=== PATIENT | female | born 1995 | race Caucasian/White ===

== ENCOUNTER → 2022-11-27 12:17 | Outpatient (CLI) | payer OTHER, MEDICAID, SELFPAY ==
[2022-11-27 14:24] LABS: Add Manual Diff / Slide Review NO; Basophils Absolute Auto 0 /uL (0-100); Basophils Percent Auto 0.3 % (0-2); Eosinophils Absolute Auto 100 /uL (0-450); Eosinophils Percent Auto 1.1 % (2-4); Hematocrit 37.9 % (36-46); Hemoglobin 12.9 g/dL (12.0-16.0); Lymphocytes Absolute Auto 1300 /uL (1100-4500); Lymphocytes Percent Auto 18.7 % (25-40); Mean Corpuscular HGB Conc 34.1 % (30-36); Mean Corpuscular Hemoglobin 31.2 PG (26-34); Mean Corpuscular Volume 91.5 fL (80-100); Monocytes Absolute Auto 300 /uL (0-900); Monocytes Percent Auto 4.9 % (3-14); Neutrophils Absolute Auto 5200 /uL (1500-7000); Platelet Count 249 X10^3/uL (150-400); Red Blood Cell Count 4.14 X10^6/uL (4.0-5.2)
[2022-11-27 15:35] LABS: HIV 1 & 2 Ab/Ag 4th Gen Combo NEGATIVE (NEGATIVE); Hepatitis B Surface Antigen NEGATIVE s/c (NEGATIVE); Rubella Antibody IgG 12.8 IU/mL (>15)
[2022-11-27 15:59] LABS: Hep C Virus Ab w/Reflex Quant NEGATIVE s/c (NEGATIVE)
[2022-11-27 17:17] LABS: Appearance Urine UA CLEAR; Bilirubin Urine UA NEGATIVE (NEGATIVE); Color Urine UA YELLOW; Glucose Urine UA NEGATIVE (Negative); Ketones Urine UA NEGATIVE (NEGATIVE); Leukocyte Esterase Urine UA NEGATIVE (NEGATIVE); Nitrite Urine UA NEGATIVE (Negative); Occult Blood Urine UA NEGATIVE (Negative); Protein Urine UA NEGATIVE (Negative); Specific Gravity Urine UA 1.015 (1.000-1.035); Urobilinogen Urine UA 0.2 E.U./dL (0.2)
[2022-11-27 17:19] LABS: pH Urine UA 5.5 (4.5-8.0)
[2022-11-27 18:41] LABS: Urine N gonorrhoeae NOT DETECTED
[2022-11-27 18:42] LABS: Urine Chlamydia NOT DETECTED
[2022-11-28 07:59] LABS: RPR Screen Non Reactive (Non Reactive)
[2022-11-28 09:10] LABS: Varicella IgG Antibody 2155 index (Immune >165)
== END ==
PROVIDERS: Visit Provider Student in an Organized Health Care Education/Training Program
DX: Z34.01 Encounter for supervision of normal first pregnancy, first trimester (principal); Z34.81 Encounter for supervision of other normal pregnancy, first trimester
CPT/HCPCS: 36415; 80055; 81003; 86787; 86803; 86850; 86900; 86901; 87086; 87389; 87491; 87591

== ENCOUNTER → 2023-01-28 11:01 | Outpatient (CLI) | payer OTHER, MEDICAID, SELFPAY ==
[2023-01-28 12:21] LABS: Appearance Urine UA CLEAR; Bilirubin Urine UA NEGATIVE (NEGATIVE); Color Urine UA YELLOW; Glucose Urine UA NEGATIVE (Negative); Ketones Urine UA NEGATIVE (NEGATIVE); Leukocyte Esterase Urine UA 1+ (NEGATIVE); Nitrite Urine UA NEGATIVE (Negative); Occult Blood Urine UA NEGATIVE (Negative); Protein Urine UA NEGATIVE (Negative); Specific Gravity Urine UA <=1.005 (1.000-1.035); Urobilinogen Urine UA 0.2 E.U./dL (0.2)
[2023-01-28 12:22] LABS: pH Urine UA 5.5 (4.5-8.0)
[2023-01-28 13:33] LABS: Bacteria Urine Few (2-10); RBC Urine 1-5/HPF (0-5/HPF); Squamous Epithelial Cell Urine 1-5 /HPF (0-5/HPF); WBC Urine 1-5/HPF (0-5/HPF)
[2023-01-28 13:34] LABS: Culture Indicated Urine Specimen Cultured
== END ==
PROVIDERS: PCP Registered Nurse; Referring Provider Family Medicine; Visit Provider Family Medicine
DX: R36.9 Urethral discharge, unspecified (principal)
CPT/HCPCS: 81001; 87086

== ENCOUNTER → 2023-02-11 12:29 | Outpatient (CLI) | payer OTHER, MEDICAID, SELFPAY ==
--- NOTE | 2023-02-11 12:30 | DI.US.S_ITS ---
PROCEDURE: US OB >= 14 WEEKS FETUS INDICATIONS: anatomy scan OUTSIDE/PRIOR DATING DATA: Last menstrual period (LMP): September 17, 2022. LMP-based estimated date of delivery (MARGO): June 24, 2023. First dating scan (date and location): November 27, 2022. Estimated date of delivery (MARGO) from first dating scan: June 20, 2023 TECHNIQUE: Real-time scanning was performed of the fetus, with image documentation and biometric measurements. Endovaginal scanning: Not performed COMPARISON: None. FINDINGS: General: A single living intrauterine gestation is present. Presentation: Vertex. Placenta: Placental position is fundal , without previa. Amniotic fluid index: 12.8 cm, normal range is 5-24 cm. Single deepest vertical pocket is 4.7 cm. heart rate: 130 beats per minute. Maternal cervical canal: 3.6 cm long. Normal lower limit is 2.5 cm. biometrics: Biparietal diameter: 5.3 cm, 22 weeks, 0 days Head circumference: 19.5 cm, 21 weeks, 5 days Abdominal circumference: 16.7 cm, 21 weeks, 5 days Femur length: 3.5 cm, 21 weeks, 1 day Clinically estimated gestational age: 21 weeks, 0 days Composite gestational age from present scan: 21 weeks, 5 days Estimated weight and percentile: 426 g, 70% Anatomic survey: Neuro: Ventricles are non-dilated at less than 10 mm. Cisterna magna is normal at 3-11 mm. Cerebellum is normal in size and morphology. Nuchal skin fold: Normal at less than 6 mm between 14-21 weeks gestational age. Face: Nose and lips, facial profile are normal. Spine: No evidence for spina bifida. Heart: 4-chambered heart is present, with normal ventricular outflow tracts. Diaphragm: Diaphragm is intact. Stomach: Left-sided stomach is present. Kidneys: No hydronephrosis. Normal is less than 5 mm in 2nd trimester, less than 7 mm in 3rd trimester. Cord: 3-vessel cord has orthotopic insertion. Bladder: Normal in size. Extremities: All 4 extremities identified. IMPRESSION: 1. Single live intrauterine gestation with a composite gestational age of 21 weeks, 5 days which is concordant with dates by initial scan. 2. No sonographic anatomic abnormalities. We strive to produce accurate, complete, and clear reports of imaging services. To assist us in improving patient care, this report was composed using standard report templates and voice recognition software. Therefore, it may contain abnormal punctuation, insertions and/or omissions. Occasional wrong-word or sound-alike substitutions may occur. Though we review the report and make efforts to correct it, we do recommend that the report be read carefully in proper context to recognize any text inaccuracies. Dictated by: Janneth Roche M.D. on 02/11/2023 at 16:51 Approved by: Janneth Roche M.D. on 02/11/2023 at 16:54
== END ==
PROVIDERS: PCP Registered Nurse; Referring Provider Family Medicine; Visit Provider Family Medicine
DX: Z3A.21 21 weeks gestation of pregnancy; Z34.02 Encounter for supervision of normal first pregnancy, second trimester
CPT/HCPCS: 76811

== ENCOUNTER → 2023-02-25 15:16 | Outpatient (CLI) | payer OTHER, MEDICAID, SELFPAY ==
[2023-02-27 16:08] LABS: Candida species Negative (Negative); Gardnerella vaginalis Negative (Negative); Trichomoas vaginalis Negative (Negative)
== END ==
PROVIDERS: Family Provider Registered Nurse; PCP Registered Nurse; Visit Provider Student in an Organized Health Care Education/Training Program
DX: N89.8 Other specified noninflammatory disorders of vagina (principal)
CPT/HCPCS: 87480; 87510; 87660

== ENCOUNTER → 2023-03-09 14:19 | Outpatient (CLI) | payer OTHER, MEDICAID, SELFPAY ==
[2023-03-09 15:43] LABS: Hematocrit 35.1 % (36-46); Hemoglobin 11.9 g/dL (12.0-16.0)
[2023-03-09 16:25] LABS: GTT (PREG) 1 Hour PP 50gm Dose 114 mg/dL (76-139)
== END ==
PROVIDERS: Family Provider Registered Nurse; PCP Registered Nurse; Referring Provider Student in an Organized Health Care Education/Training Program; Visit Provider Student in an Organized Health Care Education/Training Program
DX: Z34.01 Encounter for supervision of normal first pregnancy, first trimester (principal); Z3A.26 26 weeks gestation of pregnancy
CPT/HCPCS: 36415; 82950; 85014; 85018

== ENCOUNTER 2023-05-23 04:29 | Inpatient (IN) | payer OTHER, MEDICAID, SELFPAY ==
[2023-05-23 05:17] VITALS: BP 120/88
[2023-05-23 05:23] LABS: Add Manual Diff / Slide Review NO; Basophils Absolute Auto 100 /uL (0-100); Basophils Percent Auto 0.8 % (0-2); Eosinophils Absolute Auto 100 /uL (0-450); Eosinophils Percent Auto 1.7 % (2-4); Hematocrit 37.6 % (36-46); Hemoglobin 12.6 g/dL (12.0-16.0); Lymphocytes Absolute Auto 2200 /uL (1100-4500); Mean Corpuscular HGB Conc 33.6 % (30-36); Mean Corpuscular Hemoglobin 29.9 PG (26-34); Mean Corpuscular Volume 88.8 fL (80-100); Monocytes Absolute Auto 800 /uL (0-900); Neutrophils Absolute Auto 5300 /uL (1500-7000); Neutrophils Percent Auto 62.5 % (50-75); Platelet Count 300 X10^3/uL (150-400); Red Blood Cell Count 4.23 X10^6/uL (4.0-5.2); White Blood Cell Count 8.5 X10^3/uL (4.5-11.0)
[2023-05-23 06:41] LABS: Strep Grp B PCR NEG for Grp B Strep
--- NOTE | 2023-05-23 10:16 | PM.OBHP.1 ---
OB HPI Date/Time Date of admission: 05/23/23 Date Patient Seen: 05/23/23 Time Patient Seen: 07:15 History of Present Condition Chief complaint: Labor : 1 Estimated Date of Delivery: 06/20/23 Estimated Gestational Age (weeks): 36w0d Narrative: Trinh Murray is a 27 year old female G1 at 36w0d D=10wk US who presents to L&D with c/o spontaneous LOF at 0400 this AM. +FM, denies VB, LOF, dysuria. Noted constipation with repeated strain over the last several days. Uncomplicated per chart review, h/o reported maternal leaky mitral valve s/p clearance per cardiology 12/2022 for local delivery. GBS collected on arrival and has resulted negative. History of Present care: good care Ultrasounds: normal 1st trimester US and normal mid trimester US Obstetrical complications: none Medical complications: cardiovascular (reported h/o maternal leaky mitral valve cleared per cardiology 12/2022 for low-risk delivery ) Preadmission Labs Blood type: O (+) positive -: Antibody screen: negative, Cystic fibrosis screen: unknown, GBS status: negative, HBsAG: negative, HIV: negative, HSV 1: unknown, HSV 2: unknown and RPR/VDLR: negative -: Chlamydia screen: not detected and Gonorrhea screen: not detected -: Rubella: immune and Varicella: immune 1 hr GTT: 114 Evaluation Evaluation Baseline heart rate: 135 Variability: Moderate (11-25) monitor accelerations: Present Monitor Decelerations: Absent Uterine Contraction Intensity: Mild Status: Category l Dilation (cm): 1 Effacement (%): 50 Dilation: 1-2 cm Effacement: 40-50% station: -3 Position of cervix: mid Consistency: soft Weems score: 5 PFSH Medical History (Updated 04/22/23 @ 10:32 by Darlene Albert DO) Insomnia Plantar warts (~2015) Abnormal colonoscopy (~2018) Colon polyps (~2019) Mitral valve prolapse Surgical History (Updated 12/24/22 @ 18:57 by Agata Yuen) Anesthesia [place] teeth extracted (~2011) Family History (Updated 12/24/22 @ 18:57 by Agata Yuen) Mother Heart disease S/P CABG x 3 Bipolar disorder Hyperlipidemia Hypertension Asthma Father Heart disease Myocardial infarction Stroke Hypertension Hyperlipidemia Mental health problem Sister Abnormal colonoscopy Hyperlipidemia Hypertension Grandmother Stroke Grandmother Breast cancer Grandfather Lung cancer Social History marital status: unmarried,living together number of children: 0 household members: significant other lives independently: Yes caregiver/support person: No housing: house pets and animals: No education level: master's degree occupational status: previously employed current occupational exposures/hazards: No special bandar needs: No travel history: recent seatbelt use: always helmet use: Yes water heater temp set < 120 deg: Yes working smoke detector in home: Yes fire extinguisher in home: Yes carbon monox detector in home: Yes firearms in home: Yes firearms unloaded and locked: Yes do you feel safe at home: Yes Smoking Status: Never smoker second hand exposure: No alcohol intake: former substance use type: does not use during the past year weight has: remained stable well-balanced diet: daily or most days daily servings fruits/ve or more times/day caffeine: Yes (Tea in AM, occasional coffee in afternoon) Type(s) of exercise: walking, bicycling and other frequency: 3-4 times per week Meds Home Medications and Allergies Home Medications Medication Instructions Recorded Confirmed Type melatonin 5 mg tablet 5 mg PO BEDTIME PRN 11/14/22 05/19/23 History vitamin-ferrous sulfate tab PO 11/14/22 05/19/23 History 27 mg iron-folic acid 0.8 mg tablet loratadine 10 mg tablet (Claritin) 10 mg PO DAILY 11/27/22 05/19/23 History rljguxrwkj-wjebphacyzcqs-tbafcalb 1 tab PO Q6H PRN pain #5 tabs 01/20/23 05/19/23 Rx 50 mg-325 mg-40 mg tablet Allergies Allergy/AdvReac Type Severity Reaction Status Date / Time No Known Drug Allergies Allergy Verified 05/19/23 13:32 Review of Systems Review of Systems Narrative: neg except as per HPI, increasing mild abdominal cramping OB Exam Vital signs Blood Pressure: 120/80 Pulse Rate: 91 Respiratory Rate: 18 Narrative Exam Narrative: Well appearing gravid female HENMT Head: normal to inspection Resp Effort & Inspection: normal respiratory effort Cardio Rate: regular rate Extremities Lower extremity: Yes normal to inspection GI Other: gravid, size c/w dates External Female Exam: Yes normal external appearance and No lesion Speculum Exam - Vagina: Yes normal appearance of the vagina Presentation: vertex Estimated Weight (lbs): 5 Amniotic Fluid: clear Other: Cephalic presentation confirmed with bedside US per MD Objective Labs 05/23/23 05:00 Labs: Laboratory Results - last 24 hr 05/23/23 05/23/23 04:40 05:00 WBC 8.5 RBC 4.23 Hgb 12.6 Hct 37.6 MCV 88.8 MCH 29.9 MCHC 33.6 RDW 14.0 Plt Count 300 Neut % (Auto) 62.5 Lymph % (Auto) 26.0 [place] % (Auto) 9.0 Eos % (Auto) 1.7 L Baso % (Auto) 0.8 Neut # (Auto) 5300 Lymph # (Auto) 2200 [place] # (Auto) 800 Eos # (Auto) 100 Baso # (Auto) 100 Group B Strep (PCR) Neg for grp b strep Blood Type O Positive Antibody Screen Negative Assessment and Plan Assessment and Plan Assessment and Plan narrative: 27yo G1 at 36w0d D=10wk US presents to L&D in early latent labor following PPROM at home prior to arrival PPROM Admit to L&D CBC, T&S on admission GBS on admission negative, no indication for IV abx at this time, continue to monitor closely per protocol Pt counseled on and in agreement with recommendation for IV pitocin augmentation to decrease length of latent stage Cat 1 tracing Maternal VSS/afebrile PNL: O+/ab screen neg, HepBsAg neg, HIV/RPR neg, GC/CT/TV neg, 1h OGTT 114, VZV immune, Rubella non-immune h/o reported maternal mitral valve insufficiency, cleared per [facility] 12/2022 for non-high risk delivery Start CEFM with pitocin augmentation, wireless monitoring preferred to encourage patient ambulation Patient is consented for vaginal delivery, vaginal operative delivery and delivery as well as transfusion of blood products as medically indicated Anticipate vaginal delivery, plan interval SVE 4-6h post contraction pattern Time Spent with Patient Total time spent with greater than 50% in coordination of care (as documented) at patient's floor/unit and/or counseling patient:: Greater than 35 minutes
[2023-05-23 10:49] VITALS: BP 120/80; PULSE 91; RESP 18
[2023-05-23] MEDS: OXYTOCIN PREMIX 30 UNIT/500 ML PLAST..BAG IV (12:09)
[2023-05-23] MEDS: LACTATED RINGERS 1,000 ML 100 ML IV (12:10)
--- NOTE | 2023-05-23 14:59 | PM.OBPNLAB ---
Date/Time Date Patient Seen: 05/23/23 Time Patient Seen: 14:59 Pain Control Pain control: tolerating well Comments: nitrous Pelvic Exam Dilation (cm): 4 Effacement (%): 100 station: -2 Amniotic membrane status: Ruptured Contractions Contractions on admission: irregular Monitor mode: Palpation Pitocin rate (mU/min): 4 Contraction frequency (min): 5 Contraction pattern: Regular Contraction intensity: Moderate Status status: Category l Heart Rate Baseline: 150 Monitor Accelerations: Present Monitor Decelerations: Absent Monitor Variability: Moderate Assessment and Plan Assessment: other (latent labor ) Comments: Interval SVE with appropriate interval change, 4/C/-2 Pitocin at 4mU Anesthesia consult per pt request for epidural analgesia Titrate pitocin to pattern, continue CEFM/toco anticipate interval SVE in 4-6h/sooner PRN urge to push
--- NOTE | 2023-05-23 16:20 | PM.AN.REGBLK ---
Regional Block Pre-procedure Procedure: Continuous Lumbar Epidural for L&D Attending OB provider: Tracey Powers PMH/ROS narrative: healthy female with past medical history. Hx: No personal or family history of anesthesia problems. PSH/Anesthesia history narrative: Dental, Colonoscopy ASA Class: II Labs: Hct 37.6 % (36-46) 05/23/23 05:00 Plt Count 300 X10^3/uL (150-400) 05/23/23 05:00 Medications: Current Medications Generic Name Dose Route Start Last Admin Trade Name Freq PRN Reason Stop Dose Admin Calcium Carbonate 1,000 mg 05/23/23 04:46 Calcium Carbonate 500 Mg Tab PO Q4HR PRN Dyspepsia Carboprost Tromethamine 250 mcg 05/23/23 04:46 Carboprost 250 Mcg/Ml Ampul IM Q90M PRN Bleeding Diphenhydramine HCl 25 mg 05/23/23 16:15 Diphenhydramine 50 Mg/Ml Vial IV Q10M PRN Pruritis Docusate Sodium 100 mg 05/23/23 10:00 Docusate 100 Mg Capsule PO DAILY KVNG Ephedrine Sulfate 5 mg 05/23/23 16:15 Ephedrine 50 Mg/Ml Vial IV Q5M PRN Blood pressure decrease more than 20% of baseline. Fentanyl 50 mcg 05/23/23 04:46 Fentanyl 100 Mcg/2 Ml Inj IV Q1H PRN Pain, Moderate (4-6) Oxytocin/Lactated Ringer's 30 unit in 500 mls @ 200 mls/hr 05/23/23 04:46 Oxytocin Premix IV CONT PRN Bleeding Protocol Tranexamic Acid 1,000 mg/ 100 mls @ 200 mls/hr 05/23/23 04:46 Sodium Chloride IV NOW PRN Bleeding Lactated Ringer's 1,000 mls @ 100 mls/hr 05/23/23 05:00 05/23/23 12:10 Lactated Ringers IV 100 mls/hr CONT KVNG Administration Oxytocin/Lactated Ringer's 30 unit in 500 mls @ 2 mls/hr 05/23/23 10:45 05/23/23 12:09 Oxytocin Premix IV 2 milliunit/min TITRATE KVNG 2 mls/hr Administration Protocol 2 MILLIUNIT/MIN FENT 2MCG/ML BUPIV 0.125% EPI 200 mcg in 100 mls @ 6 mls/hr 05/23/23 16:15 Fentanyl/Bupiv/Ns 2mcg/Ml - 0.125% EPIDURAL CONT KVNG Lidocaine HCl 20 ml 05/23/23 04:46 Lidocaine 1% 20 Ml INJ INTRA-OP PRN Post Delivery Methylergonovine Maleate 0.2 mg 05/23/23 04:46 Methylergonovine 0.2 Mg Tablet PO Q6HR PRN Heavy Bleeding Methylergonovine Maleate 0.2 mg 05/23/23 04:46 Methylergonovine 0.2 Mg/Ml Vial IM NOW PRN Bleeding Misoprostol 800 mcg 05/23/23 04:46 Misoprostol 200 Mcg Tablet SD NOW PRN Bleeding Misoprostol 400 mcg 05/23/23 04:46 Misoprostol 200 Mcg Tablet SL NOW PRN Bleeding Nalbuphine HCl 2.5 mg 05/23/23 16:15 Nalbuphine 20 Mg/Ml Ampul IV Q10M PRN Pruritis Naloxone HCl 0.2 mg 05/23/23 04:46 Naloxone 0.4 Mg/Ml Vial IV Q2MIN PRN Opiate Reversal Naloxone HCl 0.4 mg 05/23/23 16:18 Naloxone 0.4 Mg/Ml Vial IV Q2MIN PRN Opiate Reversal Ondansetron HCl 4 mg 05/23/23 04:46 Ondansetron 4 Mg/2 Ml Inj IV Q4HR PRN Nausea And Vomiting Ondansetron HCl 4 mg 05/23/23 16:18 Ondansetron 4 Mg/2 Ml Inj IV 05/24/23 16:20 Q6HR PRN Nausea Oxytocin 10 unit 05/23/23 04:46 Oxytocin 10 Unit/Ml Vial IM NOW PRN Bleeding Allergies: Allergies Allergy/AdvReac Type Severity Reaction Status Date / Time No Known Drug Allergies Allergy Verified 05/19/23 13:32 Procedure Insertion date: 05/23/23 Insertion time: 15:49 Prep/Local: betadine x3 and 1% lidocaine Interspace: L3-L4 Patient position: sitting Needle: 18 gauge Lainatead Loss of resistance with: saline IRAIS at (cm): 7 Catheter placed at SKIN (cm): 14 Catheter in SPACE (cm): 7 Insertion: No CSF, No Blood, No Paresthesia with insertion, No Paresthesia with injection and No Test dose reaction Initial Medications TEST DOSE time: 15:51 TEST DOSE: 1.5% lidocaine with epinephrine 1:200k (mL): 3 BOLUS DOSE time: 15:53 BOLUS DOSE (mL): 5 BOLUS DOSE med: other (2% Lidocaine) Infusion INFUSION: 0.125% bupivacaine and with fentanyl 2 mcg/mL Initial rate (mL/hr): 6 Subsequent interventions: 1950: Bolus change from 3ml Q15min to 5ml Q20min. Delivery time: 2154 Post-procedure Anesthesia date START: 05/23/23 Anesthesia time START: 15:30 Anesthesia date END: 05/23/23 Anesthesia time END: 22:06 Post-procedure Anesthesia Assessment: Yes CV function: HR/BP stable, Yes Resp function: RR/sat/airway adequate, Yes Post-op hydration adequate, Yes Pain control adequate, Yes Nausea & vomiting absent, Yes Temperature > 36 C and Yes Mental status appropriate
--- NOTE | 2023-05-23 16:48 | PM.OBPNLAB ---
Date/Time Date Patient Seen: 05/23/23 Time Patient Seen: 16:40 Pain Control Pain control: epidural Pelvic Exam Effacement (%): 100 station: -2 Amniotic membrane status: Ruptured Contractions Monitor mode: Palpation Contraction frequency (min): 5 Contraction pattern: Regular Contraction intensity: Moderate Status status: Category l Heart Rate Baseline: 130 Monitor Accelerations: Present Monitor Decelerations: Prolonged (single isolated prolonged deceleration x5min, momo 60bpm) Monitor Variability: Moderate Assessment and Plan Assessment: active labor Plan: continuous present management Comments: Called per RN [id number] re: prolonged heart rate deceleration, standard routine intrauterine resuscitative measures ongoing MD presented to floor, pt resting in hands/knees with O2 in place, coping well maternal VSS at time of assessment, FHR spontaneously recovered to baseline 135bpm/mod pedro/+accels Hold IV pitocin, pt lissy regularly Suspect reactivity to relative maternal hypotension s/p regional analgesia anticipate vaginal delivery
[2023-05-23] MEDS: ONDANSETRON 4 MG/2 ML INJ IV (20:10)
--- NOTE | 2023-05-23 22:13 | P.PCNOB_ITS ---
Events: Other (PPROM at 36w0d, GBS neg on admission) Labor & Delivery Delivery date: 05/23/23 Intrapartal Events: Extended Bradycardia Cervical ripening method: none Induction method: none Delivery augmentation: pitocin Delivery monitor: external FHT Route of delivery: L&D Laceration Description: Superficial Estimated blood loss (mL): 200 Anesthesia Type: Epidural Complications: none Narrative: CEFM with noted prolonged deceleration followed by spontaneous recovery, intermittent deep variable decelerations with excellent intervening variability. SVE with noted complete dilation, +1 station. Patient in dorsal lithotomy to push. Adequate maternal effort, slow progression with delivery of live born male over intact perineum in JOSÉ MIGUEL position. Anterior shoulder delivered with gentle downward traction; uncomplicated delivery of posterior shoulder and body. was placed onto patient's abdomen and noted to be vigorous. Delayed cord clamping x90s, after which cord was clamped x2, cut and 3VC noted. Cord blood obtained per protocol. Under gentle traction intact placenta delivered approximately 5min following delivery. Fundal massage performed with noted excellent tone 2cm below U. Perineal exam perform revealed bilateral superficial abrasions without laceration. EBL 200cc [place] Baby 1: Infant gender: Male Presentation: vertex Position: Right Occiput Anterior Placenta delivery description: Spontaneous Cord Vessel Description: 3 Vessels score (1 min): 9 score (5 min): 9 Narrative: wgt pending completion of skin to skin Plan for aftercare: Routine care
[2023-05-23] MEDS: ACETAMINOPHEN 325 MG TABLET 650 MG PO (23:50)
[2023-05-23] MEDS: KETOROLAC 30 MG/ML VIAL IV (23:51)
[2023-05-24] MEDS: ACETAMINOPHEN 325 MG TABLET 650 MG PO (05:52)
[2023-05-24] MEDS: KETOROLAC 30 MG/ML VIAL IV (05:52)
[2023-05-24] MEDS: PRENATAL VIT,CALC/IRON/FOLIC 1 TABLET 1 TAB PO (09:35)
[2023-05-24] MEDS: DOCUSATE 100 MG CAPSULE PO (09:35)
--- NOTE | 2023-05-24 14:35 | PM.OBPN.1 ---
Subjective - OB Subjective Patient comments: no complaints and pain well controlled baby status: doing well feeding status: exclusively breast feeding Narrative: Patient resting comfortably in bed, at breast with noted excellent latch. States bleeding is roberto carlos to light menses, mild cramping well controlled with PO analgesia. Voiding and ambulating without difficulty, tolerating regular diet. Date Patient Seen: 05/24/23 Time Patient Seen: 09:20 Interval history: PPD1 s/p late-term PTSVD of liveborn male infant Exam Vital Signs (past 8 hours): maternal VS reviewed as per OBIX, wnl without fever or aberration in pulse/BP Narrative Exam Narrative: NAD Const General: cooperative and healthy appearing Nutritional Appearance: average body habitus and well nourished HENMT Head: normal to inspection Mouth: moist mucous membranes Neck Neck: normal visual inspection Chest Chest: normal inspection of the chest Resp Effort & Inspection: normal respiratory effort Cardio Other: +2 dp BLE, no significant edema noted GI Inspection: normal to inspection Other: fundus firm << umb, non-tender Other: deferred Back/Spine/Pelvis Other: epidural site unremarkable, non-tender Skin General: no rashes or lesions noted Neuro General: patient alert and patient awake Extrem General: normal to inspection Psych Appearance: grossly normal Mental Status: mental status grossly normal Speech and Movement: speech and movement normal Mood: congruent mood Objective Labs 05/23/23 05:00 Assessment & Plan Plan day: 1 plan OB: routine care Comments: anticipate dc to home PPD2 pending clearance per peds Time Spent With Patient Time: Total time spent is greater than 50% in coordination of care (as documented) at patient's floor/unit and/or counseling patient: Time with patient: 15-24 minutes
[2023-05-24] MEDS: LANOLIN OINT 7 GM 1 APPLIC TOP (15:25)
--- NOTE | 2023-05-25 08:07 | PM.OBPN.1 ---
Subjective - OB Subjective Patient comments: no complaints and pain well controlled [place] baby status: doing well and nursing well feeding status: exclusively breast feeding Narrative: Patient resting comfortably in bed, NAD. States and now pumping is going well. may require bili-lights, awaiting peds recommendations. States lochia is minimal, ambulating and voiding without difficulty, tolerating full diet. Date Patient Seen: 05/25/23 Time Patient Seen: 07:45 Interval history: PPD2 s/p late-term PTSVD of LBMI Exam Vital Signs (past 8 hours): BP 125/88 HR 68 RR 16 T 97.7F SpO2 100% RA Narrative Exam Narrative: NAD Const General: cooperative and healthy appearing Nutritional Appearance: well nourished Orientation: alert and awake HENMT Head: normal to inspection Mouth: moist mucous membranes Eyes General: appearance normal, both eyes and all related structures Neck Neck: normal visual inspection Chest Chest: normal inspection of the chest Breast inspection: normal inspection of the breasts Resp Effort & Inspection: normal respiratory effort Cardio Pulses: dorsalis pedis present GI Inspection: normal to inspection Other: fundus firm << umb, non-tender Other: exam deferred Skin General: no rashes or lesions noted Neuro General: patient alert, patient awake and patient oriented x3 Extrem General: normal to inspection Psych Appearance: grossly normal Mental Status: mental status grossly normal Speech and Movement: speech and movement normal Objective Labs 05/23/23 05:00 Assessment & Plan Plan day: 2 plan OB: routine care Comments: Continue routine care , declines bridge contraception and readdress at routine visit 4-6wks Appropriate and stable for dc, may board if requires additional observation Time Spent With Patient Time: Total time spent is greater than 50% in coordination of care (as documented) at patient's floor/unit and/or counseling patient: Time with patient: 15-24 minutes
[2023-05-25] MEDS: PRENATAL VIT,CALC/IRON/FOLIC 1 TABLET 1 TAB PO (09:44)
--- NOTE | 2023-05-25 10:15 | P.DS_ITS ---
History of Present Illness History of Present Illness Date Patient Seen: 05/25/23 Date of Onset of Symptoms: 05/23/22 Chief complaint: Labor & Delivery Narrative: PPD2 s/p late-term PTSVD of LBMI Discharge Providers Provider Date of admission: 05/23/23 04:29 Discharge Date: 05/25/23 Primary care physician: LUPE Gomez Consults: 05/23/23 04:47 Consult to Anesthesiology Urgent Comment: Consulting Provider: Anesthesiologist Reason for consultation: Epidural 05/24/23 22:10 Consult to Intervention Teacher Routine Comment: Discharge provider: Tracey Powers MD Summary Hospital Course Discharge Diagnosis: s/p uncomplicated late-term PTSVD of LBMI Hospital Course: Trinh Murray is a 27 year old female G1 at 36w0d D=10wk US who presented to L&D with c/o spontaneous LOF. Confirmed PPROM on arrival, presentation confirmed as cephalic per bedside US. Uncomplicated per chart review, h/o reported maternal leaky mitral valve s/p clearance per cardiology 12/2022 for local delivery. GBS collected on arrival resulted negative. Pt underwent gentle pitocin augmentation with subsequent progression to active labor after which pitocin infusion was stopped without change in contraction pattern. Patient received nitrous for analgesia and then requested and received regional neuraxial analgesia with placement of epidural. Uncomplicated progression to full dilation with subsequently uncomplicated second stage, delivery of vigorous LBMI over intact perineum. Patient had an uncomplicated course, meeting all discharge milestones by PPD2. exclusively, declines bridge contraception. Routine f/u with Dr. Albert. Status at Discharge Cognitive/behavioral status at discharge: oriented Functional status at discharge: independent ambulation Overall status at discharge: patient is back to baseline Time Spent with Patient Time spent: Less than 30 minutes Objective Labs 05/23/23 05:00 [facility] Medical History (Updated 04/22/23 @ 10:32 by Darlene Albert DO) Insomnia Plantar warts (~2015) Abnormal colonoscopy (~2018) Colon polyps (~2019) Mitral valve prolapse Surgical History (Updated 12/24/22 @ 18:57 by Agata Yuen) Anesthesia [place] teeth extracted (~2011) Family History (Updated 12/24/22 @ 18:57 by Agata Yuen) Mother Heart disease S/P CABG x 3 Bipolar disorder Hyperlipidemia Hypertension Asthma Father Heart disease Myocardial infarction Stroke Hypertension Hyperlipidemia Mental health problem Sister Abnormal colonoscopy Hyperlipidemia Hypertension Grandmother Stroke Grandmother Breast cancer Grandfather Lung cancer Social History marital status: unmarried,living together number of children: 0 household members: significant other lives independently: Yes caregiver/support person: No housing: house pets and animals: No education level: master's degree occupational status: previously employed current occupational exposures/hazards: No special bandar needs: No travel history: recent seatbelt use: always helmet use: Yes water heater temp set < 120 deg: Yes working smoke detector in home: Yes fire extinguisher in home: Yes carbon monox detector in home: Yes firearms in home: Yes firearms unloaded and locked: Yes do you feel safe at home: Yes Smoking Status: Never smoker second hand exposure: No alcohol intake: former substance use type: does not use during the past year weight has: remained stable well-balanced diet: daily or most days daily servings fruits/ve or more times/day caffeine: Yes (Tea in AM, occasional coffee in afternoon) Type(s) of exercise: walking, bicycling and other frequency: 3-4 times per week Discharge Assessment & Plan Assessment and Plan Assessment: PPD2 s/p uncomplicated late-term PTSVD of LBMI Plan of Treatment: dc to home with routine precautions routine f/u in office Discharge Plan Discharge Plan Patient Disposition: Home Discharge orders & Medications Prescriptions: New acetaminophen 325 mg Tablet 650 mg PO Q6HR PRN (Reason: Pain, Mild (1-3)) Qty: 30 0RF docusate sodium 100 mg Capsule 100 mg PO DAILY Qty: 30 0RF ibuprofen 600 mg Tablet 600 mg PO Q6HR PRN (Reason: Pain, Mild (1-3)) Qty: 60 0RF Continued loratadine [Claritin] 10 mg tablet 10 mg PO DAILY svmmazrtjv-paxgtihqzspww-lfab 50-325-40 mg tablet 1 tab PO Q6H PRN (Reason: pain) Qty: 5 0RF vit-ferrous sulfat-FA 27 mg iron- 0.8 mg tablet PO melatonin 5 mg tablet 5 mg PO BEDTIME PRN Follow up/Referrals: Peri Jacome ARNP [Primary Care Provider] - Darlene Albert DO [Physician] - 07/07/23 10:45 am Diet/Activity/Treatments Diet: Regular Activity: Nothing in the vagina for 6 weeks or until clearance per physician Skin/Wound/Dressing Care Report to your healthcare provider any signs of infection, such as:: chills, fever, night sweats, increased pain and unusual drainage Visit Report/Discharge Packet Instructions: DI for Hemorrhage Stand Alone Forms: Discharge: Care, Patient Portal/API, Stroke Signs & Symptoms Discharge Data Primary Care Provider: Peri Jacome Charge Codes Discharge inpatient/observation: 25600
== END 2023-05-25 11:45 | disposition home or self-care (01) | DRG 560 ==
PROVIDERS: Admitting Provider Obstetrics & Gynecology; PCP Registered Nurse; Referring Provider Obstetrics & Gynecology; Visit Provider Obstetrics & Gynecology
DX: O42.02 Full-term premature rupture of membranes, onset of labor within 24 hours of rupture (principal); O60.14X0 Preterm labor third trimester with preterm delivery third trimester, not applicable or unspecified; O76 Abnormality in fetal heart rate and rhythm complicating labor and delivery; Z3A.36 36 weeks gestation of pregnancy; Z37.0 Single live birth
CPT/HCPCS: 36415; 59050; 59409; 76815; 85025; 86850; 86900; 86901; 87081; 87653; G0379; J1885; J2405; J2590

== ENCOUNTER → 2023-10-08 11:18 | Outpatient (CLI) | payer OTHER, MEDICAID, SELFPAY ==
[2023-10-08 12:24] LABS: Add Manual Diff / Slide Review NO; Basophils Absolute Auto 0 /uL (0-100); Basophils Percent Auto 0.6 % (0-2); Eosinophils Absolute Auto 100 /uL (0-450); Eosinophils Percent Auto 2.6 % (2-4); Hematocrit 40.7 % (36-46); Lymphocytes Absolute Auto 2100 /uL (1100-4500); Lymphocytes Percent Auto 37.6 % (25-40); Mean Corpuscular HGB Conc 34.3 % (30-36); Mean Corpuscular Hemoglobin 32.2 PG (26-34); Monocytes Absolute Auto 600 /uL (0-900); Monocytes Percent Auto 10.5 % (3-14); Neutrophils Absolute Auto 2700 /uL (1500-7000); Neutrophils Percent Auto 48.7 % (50-75); Platelet Count 278 X10^3/uL (150-400); Red Blood Cell Count 4.33 X10^6/uL (4.0-5.2); White Blood Cell Count 5.6 X10^3/uL (4.5-11.0)
[2023-10-08 13:08] LABS: TSH w/ Reflex to FT4 1.51 uIU/mL (0.47-4.68)
[2023-10-08 13:13] LABS: Ferritin 14 ng/mL (6-137)
== END ==
PROVIDERS: PCP Registered Nurse; Referring Provider Family Medicine; Visit Provider Family Medicine
DX: O92.4 Hypogalactia (principal)
CPT/HCPCS: 36415; 82728; 84443; 85025

== ENCOUNTER → 2024-05-11 07:38 | Outpatient (CLI) | payer OTHER, SELFPAY ==
--- NOTE | 2024-05-11 14:13 | DI.NM.S_ITS ---
DATE OF SERVICE: 05/11/2024 EXERCISE STRESS TEST INDICATIONS: Exertional chest tightness. CARDIAC STRESS: The patient underwent exercise stress test under the supervision of an attending staff. She walked on [place] protocol for 11 minute 42 seconds, achieved SCOTT -19%, 11.7 METS of workload, maximum heart rate 176, which was 93% of target heart rate. Normal blood pressure response. Resting blood pressure 118/84 and peak blood pressure 178/72 mmHg. Baseline rhythm sinus. During stress, no convincing ischemic changes seen. No significant arrhythmias. No anginal symptoms. The patient felt fatigue and some dyspnea. Normal recovery. CONCLUSION: Exercise stress test is negative for inducible ischemia. Good exercise tolerance. Normal hemodynamic response. No anginal symptoms. No significant arrhythmias. Overall, low-risk exercise stress test. Trevor Trinh - ALCIDES/sherry/EDMOND doc#: [id number]/job#: [id number] dd: 05/11/2024 12:58:00 dt: 05/11/2024 14:02:00 DICTATING /COPIES TO: Sunita Pickens MD COPIES MNE: HEMAL;
== END ==
PROVIDERS: Family Provider Registered Nurse; PCP Registered Nurse; Referring Provider Registered Nurse; Visit Provider Registered Nurse
DX: I20.89 Other forms of angina pectoris (principal); Z82.41 Family history of sudden cardiac death; R06.02 Shortness of breath
CPT/HCPCS: 93017

== ENCOUNTER 2024-06-20 13:00 | Outpatient (RCR) | payer OTHER, MEDICAID, SELFPAY ==
--- NOTE | 2024-02-29 18:38 | PT.OIE ---
Current Diagnoses Urge incontinence (02/29/24) Past Medical History (Last Updated 07/07/23 @ 14:57 by Tracey Powers MD) Abnormal colonoscopy (~2018) Colon polyps (~2019) Encounter for assessment Insomnia Mitral valve prolapse Plantar warts (~2015) Past Surgical History (Last Updated 12/24/22 @ 18:57 by Agata Yuen) Anesthesia [place] teeth extracted (~2011) Visit Care Team Role Provider Type LUPE Mcmullen Family Provider Non-Staff Primary Care Provider Specialty: Family Practice Address: [address] [place] [address], [address], [place], [address] Email: Tracey Powers MD Attending Provider Physician Referring Provider Specialty: DIESEL PILE HAMMER OPERATOR Address: [address] [place] [address], [address], [address] Email: [email or web address] Physical Therapy Initial Evaluation PT-OP-A Visit Information Start: 01/31/24 13:11 Freq: Status: Active Protocol: Document 02/29/24 11:39 LRN (Rec: 02/29/24 12:38 LRN [id number]) Out-Patient Physical Therapy Visit Information Visit Information Visit Type Initial Evaluation Visit Start Time 11:39 Visit Stop Time 12:31 Visit Number 03/18 Evaluation Information Evaluation Date 02/29/24 Precautions Precautions 9 months post-, at nighttime, 1G1P. PT-OP-B Current Condition Start: 01/31/24 13:11 Freq: Status: Active Protocol: Document 02/29/24 11:39 LRN (Rec: 02/29/24 12:38 LRN [id number]) Current Condition History of Current Condition Onset Date 05/23/23 Current Complaints Urinary incontinenace. History of Current Condition 9 month , baby (baby 5#, 1 oz.) was delivered vaginally without tearing, with epidural, 4 wks early. She is still breast feeding, but only at night. Problems of constipation during is resolved. She reports urinary leakage occasionally with sneeze ( while sitting cross legged, of if not lissy before sneezing, and jumping jacks). She is currently on control (IUD good for a few years). 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 She reports pain with intercourse, jolt sometimes with initial first few insertions. Prior Treatments and Tests PT for urinary incontinence when 27 wks . Developmental History Developmental History Pt is a traveling OT, off work until next fall. She was seen at 27 weeks for stress urinary incontinence. She had had urinary leakage for 2-3 yrs prior to and was doing [employer] ex's from the [employer]. During she had stress urinary leakage and constipation. Treatment Goals Patient/Caregiver Goals - Not to leak with physical activity. - no pain with intercourse. Personal Factors Other Personal Factors That May Effect History of urinary Therapy/Recovery incontinence 1-2 yrs prior to , pain with intercourse prior to , and urinary incontinecne after 27 wks of . PT-OP-C Subjective Start: 01/31/24 13:11 Freq: Status: Active Protocol: Document 02/29/24 11:39 LRN (Rec: 02/29/24 12:38 LRN [id number]) Patient Questionnaires Pelvic Pain and Urgency/Frequency Patient Symptom Scale Pelvic Pain Score 13 OP-PT Pain Assessment Pain Assessment Grid Paper Pain Assessment Grid Completed Yes Location Low back Pain Location Details Lower back, sacral region Intensity 3 Scale Used Numeric (0 - 10) Description Pinching Description- Other Sometimes sharp with exercise. Frequency Occasional Variations/Patterns When picking son up or after ex class Upper back Pain Location Details Intrascapular region. Intensity 3 Scale Used Numeric (0 - 10) Description Aching Frequency Intermittent Variations/Patterns In the afternoon. PT-OP-I Pelvic Floor Start: 01/31/24 13:11 Freq: Status: Active Protocol: Document 02/29/24 11:39 LRN (Rec: 02/29/24 12:38 LRN [id number]) Pelvic Floor Assessment Urine Pelvic Floor Surgery No Urinary Symptoms Urge Sensation Other Urinary Symptoms Before going to bed, goes to bathroom 3x, always has urge after brushing teeth, and drinks tea before going to bed . Leakage Size Small Leakage Cause Sneeze Other Leakage Causes If cross legged, more leakage - change under wear. Standing, slight leak. Leaks Per Day 3x/wk Voiding Frequency every 1-1.5 hrs Nocturia 1-2 Pads Used In 24 Hours pad for spotting, not urine. Urine Pad Type Panty Liner Bowel Bowel Surgery No Other Bowel Symptoms None Bowel Movement Frequency Daily Costilla Stool Chart Comments Type 4 & 6. Pelvic Clock Pelvic Clock 3-6 Tenderness Pelvic Clock 6-9 Tenderness Prolapse Prolapse Comments Not visible Perineal Descent Resting Absent Bearing Present Contraction Ability Voluntary Contraction Moderate Voluntary Relaxation Weak Manual Muscle Testing Left 2 Manual Muscle Testing Right 3 Manual Muscle Testing Anterior 2 Manual Muscle Testing Posterior 3 Muscle Endurance (Seconds) 10 Number of Quick Contractions In 10 10 Seconds PT-OP-J Posture/Palpation/Skin Start: 01/31/24 13:11 Freq: Status: Active Protocol: Document 02/29/24 11:39 LRN (Rec: 02/29/24 12:38 LRN [id number]) Posture Evaluation Position Standing Head/C-Spine Posture Forward Head L-Spine Posture Increased Lordosis,Shifted Left Pelvis Posture Anteriorly Tilted Weight Distribution Balanced PT-OP-K Range of Motion Start: 01/31/24 13:11 Freq: Status: Active Protocol: Document 02/29/24 11:39 LRN (Rec: 02/29/24 12:38 LRN [id number]) Lumbar Spine Range of Motion Lumbar Spine Active Degrees Testing Position Standing Flexion 90 Rotation Left 15 Rotation Right 10 Lateral Flexion Left 15 Lateral Flexion Right 10 Hip Goniometric Range of Motion Hip Right Passive Testing Position Supine Internal Rotation 30 External Rotation 90 Left Passive Internal Rotation 30 External Rotation 90 PT-OP-M Strength Start: 01/31/24 13:11 Freq: Status: Active Protocol: Document 02/29/24 11:39 LRN (Rec: 02/29/24 12:38 LRN [id number]) Trunk Strength Trunk Manual Muscle Testing Core Stabilization Loss of core stabiity with rotational stress applied Hip Strength Hip Manual Muscle Testing Right Comments Strength is 5/5. Hip extension caused LBP onset at ~L5-S1. Left External Rotation 3 Fair Comments Strength is 5/5 except as indicated above. PT-OP-Q Treatments Start: 01/31/24 13:11 Freq: Status: Active Protocol: Document 02/29/24 11:39 LRN (Rec: 02/29/24 12:38 LRN [id number]) Self-Care/Home Management Treatment Education Other Education Discussed results of evaluation, goals, treatment, and plan of care (POC) with pt , discussed attendance/cx/dns policy; pt agreeable to evaluation, goals, treatment, attendance/cx/dns policy. Discussed and educated pt in specifics for completion of in use of Bladder Diary and I/S in tracking for 1 week. Activities Self-Care/Home Management Activities Issued & reviewed HEP: [employer] ex's and discussed exercise of Quick Flicks, Long Holds and Aggravators (sumping/sneezing) . Issued & reviewed: Urge deference technique. PT-OP-T Assessment and Plan Start: 01/31/24 13:11 Freq: Status: Active Protocol: Document 02/29/24 11:39 LRN (Rec: 02/29/24 12:38 LRN [id number]) Physical Therapy Assessment Rehab Potential Rehabilitation Potential Good Evaluation Complexity Number of Personal Factors/Comorbidities 1-2 Number of Body Systems Impaired 4 or More Clinical Presentation at Evaluation Evolving Impairments Impairments Activity Tolerance,Pain,ROM, Soft Tissue Mobility,Strength, Transfers Goals 4 Impairment Low back and upper back pain rated 3/10. Short Term Goal (STG) Pt will be educated and demonstrate knowledge of proper body mechanics for childcare and improve standing posture. STG Duration 04/29/24 Director Customer Goal (LTG) Decrease upper and lower back pain to no more than 1/10 with modifications to positioning. LTG Duration 06/24/24 3 Impairment Pain with intercourse Short Term Goal (STG) Pt will be educated and perform PF trP stretching for self care. STG Duration 04/29/24 Director Customer Goal (LTG) Reduce PF pain to no pain with intercourse. LTG Duration 06/24/24 2 Impairment Stress Urinary Incontinence ( JOHN) w/sneeze & exercise. Short Term Goal (STG) Pt is not able to perform a PF contraction in the absence of abdominal/gluteal/hip AD muscles. STG Duration 04/29/24 Director Customer Goal (LTG) Improve PF strength to 3/5 with no urinary leakage with physical activity (not to include jumping). LTG Duration 06/24/24 1 Impairment Lacks appropriate self care HEP Short Term Goal (STG) Pt will demonstrate knowledge of use of urge deference technique and be educated and able to demonstrate core pressure management with transfers. STG Duration 04/29/24 Director Customer Goal (LTG) Pt will be educated in a self care HEP of PF/ L hip (ER/ext) strengthening, and trunk AROM R rot & SB stretches. LTG Duration 06/24/24 Assessment Summary Assessment Pt is a 28 yo female who presents with stress urinary incontinence and insertional dypareunia, decr'd trunk AROM R rot & SB, and weakness with L hip ER and pain with R hip Ext. The pt is expected to do well with therapy and will benefit from skilled physical therapy to work towards achieving the above stated goals. Physical Therapy Plan Frequency and Duration Frequency of Treatment 1x/Week Duration of treatment (weeks) 16 Plan of Care Start Date 02/29/24 Plan of Care End Date 06/24/24 Therapeutic Interventions Therapeutic Interventions Home Exercise Program,Joint Mobilizations,Manual Therapy, Neuromuscular Re-education, Self-Care/Home Management,Soft Tissue Mobilization,Taping, Therapeutic Activities, Therapeutic Exercises Modalities Biofeedback,Cold Pack/Ice Massage Next Visit Focus/Plan Next Note Type Treatment Note Next Visit Plan Assess bladder diary and make recommendations as appropriate . Assess for DR. MOURA PF assessment. Assess for Sacral balancing. Education: PF contractions in isolation of substitute muscles, coordination of proper breaths with ADLs, transfers, body mechanics ( baby care) and exercise ( general ex program to start). Ther Ex: Trunk stretch (Flex, R SB & Rot). Strengthening L hip ER, upper back and abdominals. PF strengthening in isolation of substitute muscles. STM: Upper and lower back. POC: Pt education, Manual therapy. Biofeedback with vaginal sensor for PF >< awareness and strengthening, Therapeutic Exercises, Therapeutic Activities, Neuromuscular Reeducation, STM , Modalities (IFES, MH, cold pack).
--- NOTE | 2024-02-29 18:39 | PT.OPPOC ---
Physical, Occupational & Speech Therapy At [facility] Current Diagnoses Urge incontinence (02/29/24) Visit Care Team Role Provider Type LUPE Mcmullen Family Provider Non-Staff Primary Care Provider Specialty: Family Practice Address: [address], [address], [place], [address] Email: Tracey Powers MD Attending Provider Physician Referring Provider Specialty: METAL INSPECTOR Address: [address] [place] [address], [facility], [place], [address] Email: [email or web address] Plan Of Care PT-OP-B Current Condition Start: 01/31/24 13:11 Freq: Status: Active Protocol: Document 02/29/24 11:39 LRN (Rec: 02/29/24 12:38 LRN [id number]) Current Condition History of Current Condition Onset Date 05/23/23 Current Complaints Urinary incontinenace. History of Current Condition 9 month , baby (baby 5#, 1 oz.) was delivered vaginally without tearing, with epidural, 4 wks early. She is still breast feeding, but only at night. Problems of constipation during is resolved. She reports urinary leakage occasionally with sneeze ( while sitting cross legged, of if not lissy before sneezing, and jumping jacks). She is currently on control (IUD good for a few years). 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 She reports pain with intercourse, jolt sometimes with initial first few insertions. Prior Treatments and Tests PT for urinary incontinence when 27 wks . Developmental History Developmental History Pt is a traveling OT, off work until next fall. She was seen at 27 weeks for stress urinary incontinence. She had had urinary leakage for 2-3 yrs prior to and was doing [employer] ex's from the [employer]. During she had stress urinary leakage and constipation. Treatment Goals Patient/Caregiver Goals - Not to leak with physical activity. - no pain with intercourse. Personal Factors Other Personal Factors That May Effect History of urinary Therapy/Recovery incontinence 1-2 yrs prior to , pain with intercourse prior to , and urinary incontinecne after 27 wks of . PT-OP-T Assessment and Plan Start: 01/31/24 13:11 Freq: Status: Active Protocol: Document 02/29/24 11:39 LRN (Rec: 02/29/24 12:38 LRN [id number]) Physical Therapy Assessment Rehab Potential Rehabilitation Potential Good Evaluation Complexity Number of Personal Factors/Comorbidities 1-2 Number of Body Systems Impaired 4 or More Clinical Presentation at Evaluation Evolving Impairments Impairments Activity Tolerance,Pain,ROM, Soft Tissue Mobility,Strength, Transfers Goals 4 Impairment Low back and upper back pain rated 3/10. Short Term Goal (STG) Pt will be educated and demonstrate knowledge of proper body mechanics for childcare and improve standing posture. STG Duration 04/29/24 Contract Technical Writer Goal (LTG) Decrease upper and lower back pain to no more than 1/10 with modifications to positioning. LTG Duration 06/24/24 3 Impairment Pain with intercourse Short Term Goal (STG) Pt will be educated and perform PF trP stretching for self care. STG Duration 04/29/24 [facility] Goal (LTG) Reduce PF pain to no pain with intercourse. LTG Duration 06/24/24 2 Impairment Stress Urinary Incontinence ( JOHN) w/sneeze & exercise. Short Term Goal (STG) Pt is not able to perform a PF contraction in the absence of abdominal/gluteal/hip AD muscles. STG Duration 04/29/24 Contract Technical Writer Goal (LTG) Improve PF strength to 3/5 with no urinary leakage with physical activity (not to include jumping). LTG Duration 06/24/24 1 Impairment Lacks appropriate self care HEP Short Term Goal (STG) Pt will demonstrate knowledge of use of urge deference technique and be educated and able to demonstrate core pressure management with transfers. STG Duration 04/29/24 Contract Technical Writer Goal (LTG) Pt will be educated in a self care HEP of PF/ L hip (ER/ext) strengthening, and trunk AROM R rot & SB stretches. LTG Duration 06/24/24 Assessment Summary Assessment Pt is a 28 yo female who presents with stress urinary incontinence and insertional dypareunia, decr'd trunk AROM R rot & SB, and weakness with L hip ER and pain with R hip Ext. The pt is expected to do well with therapy and will benefit from skilled physical therapy to work towards achieving the above stated goals. Physical Therapy Plan Frequency and Duration Frequency of Treatment 1x/Week Duration of treatment (weeks) 16 Plan of Care Start Date 02/29/24 Plan of Care End Date 06/24/24 Therapeutic Interventions Therapeutic Interventions Home Exercise Program,Joint Mobilizations,Manual Therapy, Neuromuscular Re-education, Self-Care/Home Management,Soft Tissue Mobilization,Taping, Therapeutic Activities, Therapeutic Exercises Modalities Biofeedback,Cold Pack/Ice Massage Next Visit Focus/Plan Next Note Type Treatment Note Next Visit Plan Assess bladder diary and make recommendations as appropriate . Assess for DRLaxmi EMG PF assessment. Assess for Sacral balancing. Education: PF contractions in isolation of substitute muscles, coordination of proper breaths with ADLs, transfers, body mechanics ( baby care) and exercise ( general ex program to start). Ther Ex: Trunk stretch (Flex, R SB & Rot). Strengthening L hip ER, upper back and abdominals. PF strengthening in isolation of substitute muscles. STM: Upper and lower back. POC: Pt education, Manual therapy. Biofeedback with vaginal sensor for PF >< awareness and strengthening, Therapeutic Exercises, Therapeutic Activities, Neuromuscular Reeducation, STM , Modalities (IFES, MH, cold pack). Plan of Care Dates Plan of Care Start Date 02/29/24 Plan of Care End Date 06/24/24 Electronically Signed by: Janneth Santacruz, PT 03/01/24 [id number] If you are in agreement with this Plan of Care, please return a signed and dated copy. I have reviewed this Plan of Care and certify that the skilled therapy services above are required to meet the patient?s needs. Physician Signature Date Printed Name and Credentials Clinical Instructor Signature Printed Name and Credentials
--- NOTE | 2024-02-29 18:47 | PT.OIE ---
Current Diagnoses Low back pain, unspecified (02/29/24) Pain in thoracic spine (02/29/24) Stress incontinence (female) (male) (02/29/24) Urge incontinence (02/29/24) Unspecified dyspareunia (02/29/24) Past Medical History (Last Updated 07/07/23 @ 14:57 by Tracey Powers MD) Abnormal colonoscopy (~2018) Colon polyps (~2019) Encounter for assessment Insomnia Mitral valve prolapse Plantar warts (~2015) Past Surgical History (Last Updated 12/24/22 @ 18:57 by Agata Yuen) Anesthesia [place] teeth extracted (~2011) Visit Care Team Role Provider Type LUPE Mcmullen Family Provider Non-Staff Primary Care Provider Specialty: Family Practice Address: [facility] [place], [address] Email: Tracey Powers MD Attending Provider Physician Referring Provider Specialty: MID LEVEL PRACTITIONER Address: [address] [place] [address], [address] Email: [email or web address] Physical Therapy Initial Evaluation PT-OP-A Visit Information Start: 01/31/24 13:11 Freq: Status: Active Protocol: Document 02/29/24 11:39 LRN (Rec: 02/29/24 12:38 LRN [id number]) Out-Patient Physical Therapy Visit Information Visit Information Visit Type Initial Evaluation Visit Start Time 11:39 Visit Stop Time 12:31 Visit Number 03/18 Evaluation Information Evaluation Date 02/29/24 Precautions Precautions 9 months post-, at nighttime, 1G1P. PT-OP-B Current Condition Start: 01/31/24 13:11 Freq: Status: Active Protocol: Document 02/29/24 11:39 LRN (Rec: 02/29/24 12:38 LRN [id number]) Current Condition History of Current Condition Onset Date 05/23/23 Current Complaints Urinary incontinenace. History of Current Condition 9 month , baby (baby 5#, 1 oz.) was delivered vaginally without tearing, with epidural, 4 wks early. She is still breast feeding, but only at night. Problems of constipation during is resolved. She reports urinary leakage occasionally with sneeze ( while sitting cross legged, of if not lissy before sneezing, and jumping jacks). She is currently on control (IUD good for a few years). 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 She reports pain with intercourse, jolt sometimes with initial first few insertions. Prior Treatments and Tests PT for urinary incontinence when 27 wks . Developmental History Developmental History Pt is a traveling OT, off work until next fall. She was seen at 27 weeks for stress urinary incontinence. She had had urinary leakage for 2-3 yrs prior to and was doing [employer] ex's from the [employer]. During she had stress urinary leakage and constipation. Treatment Goals Patient/Caregiver Goals - Not to leak with physical activity. - no pain with intercourse. Personal Factors Other Personal Factors That May Effect History of urinary Therapy/Recovery incontinence 1-2 yrs prior to , pain with intercourse prior to , and urinary incontinecne after 27 wks of . PT-OP-C Subjective Start: 01/31/24 13:11 Freq: Status: Active Protocol: Document 02/29/24 11:39 LRN (Rec: 02/29/24 12:38 LRN [id number]) Patient Questionnaires Pelvic Pain and Urgency/Frequency Patient Symptom Scale Pelvic Pain Score 13 OP-PT Pain Assessment Pain Assessment Grid Paper Pain Assessment Grid Completed Yes Location Low back Pain Location Details Lower back, sacral region Intensity 3 Scale Used Numeric (0 - 10) Description Pinching Description- Other Sometimes sharp with exercise. Frequency Occasional Variations/Patterns When picking son up or after ex class Upper back Pain Location Details Intrascapular region. Intensity 3 Scale Used Numeric (0 - 10) Description Aching Frequency Intermittent Variations/Patterns In the afternoon. PT-OP-I Pelvic Floor Start: 01/31/24 13:11 Freq: Status: Active Protocol: Document 02/29/24 11:39 LRN (Rec: 02/29/24 12:38 LRN [id number]) Pelvic Floor Assessment Urine Pelvic Floor Surgery No Urinary Symptoms Urge Sensation Other Urinary Symptoms Before going to bed, goes to bathroom 3x, always has urge after brushing teeth, and drinks tea before going to bed . Leakage Size Small Leakage Cause Sneeze Other Leakage Causes If cross legged, more leakage - change under wear. Standing, slight leak. Leaks Per Day 3x/wk Voiding Frequency every 1-1.5 hrs Nocturia 1-2 Pads Used In 24 Hours pad for spotting, not urine. Urine Pad Type Panty Liner Bowel Bowel Surgery No Other Bowel Symptoms None Bowel Movement Frequency Daily [place] Stool Chart Comments Type 4 & 6. Pelvic Clock Pelvic Clock 3-6 Tenderness Pelvic Clock 6-9 Tenderness Prolapse Prolapse Comments Not visible Perineal Descent Resting Absent Bearing Present Contraction Ability Voluntary Contraction Moderate Voluntary Relaxation Weak Manual Muscle Testing Left 2 Manual Muscle Testing Right 3 Manual Muscle Testing Anterior 2 Manual Muscle Testing Posterior 3 Muscle Endurance (Seconds) 10 Number of Quick Contractions In 10 10 Seconds PT-OP-J Posture/Palpation/Skin Start: 01/31/24 13:11 Freq: Status: Active Protocol: Document 02/29/24 11:39 LRN (Rec: 02/29/24 12:38 LRN [id number]) Posture Evaluation Position Standing Head/C-Spine Posture Forward Head L-Spine Posture Increased Lordosis,Shifted Left Pelvis Posture Anteriorly Tilted Weight Distribution Balanced PT-OP-K Range of Motion Start: 01/31/24 13:11 Freq: Status: Active Protocol: Document 02/29/24 11:39 LRN (Rec: 02/29/24 12:38 LRN [id number]) Lumbar Spine Range of Motion Lumbar Spine Active Degrees Testing Position Standing Flexion 90 Rotation Left 15 Rotation Right 10 Lateral Flexion Left 15 Lateral Flexion Right 10 Hip Goniometric Range of Motion Hip Right Passive Testing Position Supine Internal Rotation 30 External Rotation 90 Left Passive Internal Rotation 30 External Rotation 90 PT-OP-M Strength Start: 01/31/24 13:11 Freq: Status: Active Protocol: Document 02/29/24 11:39 LRN (Rec: 02/29/24 12:38 LRN [id number]) Trunk Strength Trunk Manual Muscle Testing Core Stabilization Loss of core stabiity with rotational stress applied Hip Strength Hip Manual Muscle Testing Right Comments Strength is 5/5. Hip extension caused LBP onset at ~L5-S1. Left External Rotation 3 Fair Comments Strength is 5/5 except as indicated above. PT-OP-Q Treatments Start: 01/31/24 13:11 Freq: Status: Active Protocol: Document 02/29/24 11:39 LRN (Rec: 02/29/24 12:38 LRN [id number]) Self-Care/Home Management Treatment Education Other Education Discussed results of evaluation, goals, treatment, and plan of care (POC) with pt , discussed attendance/cx/dns policy; pt agreeable to evaluation, goals, treatment, attendance/cx/dns policy. Discussed and educated pt in specifics for completion of in use of Bladder Diary and I/S in tracking for 1 week. Activities Self-Care/Home Management Activities Issued & reviewed HEP: [employer] ex's and discussed exercise of Quick Flicks, Long Holds and Aggravators (sumping/sneezing) . Issued & reviewed: Urge deference technique. PT-OP-T Assessment and Plan Start: 01/31/24 13:11 Freq: Status: Active Protocol: Document 02/29/24 11:39 LRN (Rec: 02/29/24 12:38 [facility] [id number]) Physical Therapy Assessment Rehab Potential Rehabilitation Potential Good Evaluation Complexity Number of Personal Factors/Comorbidities 1-2 Number of Body Systems Impaired 4 or More Clinical Presentation at Evaluation Evolving Impairments Impairments Activity Tolerance,Pain,ROM, Soft Tissue Mobility,Strength, Transfers Goals 4 Impairment Low back and upper back pain rated 3/10. Short Term Goal (STG) Pt will be educated and demonstrate knowledge of proper body mechanics for childcare and improve standing posture. STG Duration 04/29/24 Retirement Goal (LTG) Decrease upper and lower back pain to no more than 1/10 with modifications to positioning. LTG Duration 06/24/24 3 Impairment Pain with intercourse Short Term Goal (STG) Pt will be educated and perform PF trP stretching for self care. STG Duration 04/29/24 Criminal Investigator Goal (LTG) Reduce PF pain to no pain with intercourse. LTG Duration 06/24/24 2 Impairment Stress Urinary Incontinence ( JOHN) w/sneeze & exercise. Short Term Goal (STG) Pt is not able to perform a PF contraction in the absence of abdominal/gluteal/hip AD muscles. STG Duration 04/29/24 Criminal Investigator Goal (LTG) Improve PF strength to 3/5 with no urinary leakage with physical activity (not to include jumping). LTG Duration 06/24/24 1 Impairment Lacks appropriate self care HEP Short Term Goal (STG) Pt will demonstrate knowledge of use of urge deference technique and be educated and able to demonstrate core pressure management with transfers. STG Duration 04/29/24 Criminal Investigator Goal (LTG) Pt will be educated in a self care HEP of PF/ L hip (ER/ext) strengthening, and trunk AROM R rot & SB stretches. LTG Duration 06/24/24 Assessment Summary Assessment Pt is a 28 yo female who presents with stress urinary incontinence and insertional dypareunia, decr'd trunk AROM R rot & SB, and weakness with L hip ER and pain with R hip Ext. The pt is expected to do well with therapy and will benefit from skilled physical therapy to work towards achieving the above stated goals. Physical Therapy Plan Frequency and Duration Frequency of Treatment 1x/Week Duration of treatment (weeks) 16 Plan of Care Start Date 02/29/24 Plan of Care End Date 06/24/24 Therapeutic Interventions Therapeutic Interventions Home Exercise Program,Joint Mobilizations,Manual Therapy, Neuromuscular Re-education, Self-Care/Home Management,Soft Tissue Mobilization,Taping, Therapeutic Activities, Therapeutic Exercises Modalities Biofeedback,Cold Pack/Ice Massage Next Visit Focus/Plan Next Note Type Treatment Note Next Visit Plan Assess bladder diary and make recommendations as appropriate . Assess for DR. MOURA PF assessment. Assess for Sacral balancing. Education: PF contractions in isolation of substitute muscles, coordination of proper breaths with ADLs, transfers, body mechanics ( baby care) and exercise ( general ex program to start). Ther Ex: Trunk stretch (Flex, R SB & Rot). Strengthening L hip ER, upper back and abdominals. PF strengthening in isolation of substitute muscles. STM: Upper and lower back. POC: Pt education, Manual therapy. Biofeedback with vaginal sensor for PF >< awareness and strengthening, Therapeutic Exercises, Therapeutic Activities, Neuromuscular Reeducation, STM , Modalities (IFES, MH, cold pack).
--- NOTE | 2024-02-29 18:48 | PT.OPPOC ---
Physical, Occupational & Speech Therapy At [facility] Current Diagnoses Low back pain, unspecified (02/29/24) Pain in thoracic spine (02/29/24) Stress incontinence (female) (male) (02/29/24) Urge incontinence (02/29/24) Unspecified dyspareunia (02/29/24) Visit Care Team Role Provider Type LUPE Mcmullen Family Provider Non-Staff Primary Care Provider Specialty: Family Practice Address: [facility], [address], [place], [address] Email: Tracey Powers MD Attending Provider Physician Referring Provider Specialty: AQUACULTURE FARM MANAGER Address: [address] [place] [address], [address] Email: [email or web address] Plan Of Care PT-OP-B Current Condition Start: 01/31/24 13:11 Freq: Status: Active Protocol: Document 02/29/24 11:39 LRN (Rec: 02/29/24 12:38 LRN [id number]) Current Condition History of Current Condition Onset Date 05/23/23 Current Complaints Urinary incontinenace. History of Current Condition 9 month , baby (baby 5#, 1 oz.) was delivered vaginally without tearing, with epidural, 4 wks early. She is still breast feeding, but only at night. Problems of constipation during is resolved. She reports urinary leakage occasionally with sneeze ( while sitting cross legged, of if not lissy before sneezing, and jumping jacks). She is currently on control (IUD good for a few years). 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 She reports pain with intercourse, jolt sometimes with initial first few insertions. Prior Treatments and Tests PT for urinary incontinence when 27 wks . Developmental History Developmental History Pt is a traveling OT, off work until next fall. She was seen at 27 weeks for stress urinary incontinence. 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 During she had stress urinary leakage and constipation. Treatment Goals Patient/Caregiver Goals - Not to leak with physical activity. - no pain with intercourse. Personal Factors Other Personal Factors That May Effect History of urinary Therapy/Recovery incontinence 1-2 yrs prior to , pain with intercourse prior to , and urinary incontinecne after 27 wks of . PT-OP-T Assessment and Plan Start: 01/31/24 13:11 Freq: Status: Active Protocol: Document 02/29/24 11:39 LRN (Rec: 02/29/24 12:38 LRN [id number]) Physical Therapy Assessment Rehab Potential Rehabilitation Potential Good Evaluation Complexity Number of Personal Factors/Comorbidities 1-2 Number of Body Systems Impaired 4 or More Clinical Presentation at Evaluation Evolving Impairments Impairments Activity Tolerance,Pain,ROM, Soft Tissue Mobility,Strength, Transfers Goals 4 Impairment Low back and upper back pain rated 3/10. Short Term Goal (STG) Pt will be educated and demonstrate knowledge of proper body mechanics for childcare and improve standing posture. STG Duration 04/29/24 Electric Motor Analyst Goal (LTG) Decrease upper and lower back pain to no more than 1/10 with modifications to positioning. LTG Duration 06/24/24 3 Impairment Pain with intercourse Short Term Goal (STG) Pt will be educated and perform PF trP stretching for self care. STG Duration 04/29/24 Electric Motor Analyst Goal (LTG) Reduce PF pain to no pain with intercourse. LTG Duration 06/24/24 2 Impairment Stress Urinary Incontinence ( JOHN) w/sneeze & exercise. Short Term Goal (STG) Pt is not able to perform a PF contraction in the absence of abdominal/gluteal/hip AD muscles. STG Duration 04/29/24 Electric Motor Analyst Goal (LTG) Improve PF strength to 3/5 with no urinary leakage with physical activity (not to include jumping). LTG Duration 06/24/24 1 Impairment Lacks appropriate self care HEP Short Term Goal (STG) Pt will demonstrate knowledge of use of urge deference technique and be educated and able to demonstrate core pressure management with transfers. STG Duration 04/29/24 Electric Motor Analyst Goal (LTG) Pt will be educated in a self care HEP of PF/ L hip (ER/ext) strengthening, and trunk AROM R rot & SB stretches. LTG Duration 06/24/24 Assessment Summary Assessment Pt is a 28 yo female who presents with stress urinary incontinence and insertional dypareunia, decr'd trunk AROM R rot & SB, and weakness with L hip ER and pain with R hip Ext. The pt is expected to do well with therapy and will benefit from skilled physical therapy to work towards achieving the above stated goals. Physical Therapy Plan Frequency and Duration Frequency of Treatment 1x/Week Duration of treatment (weeks) 16 Plan of Care Start Date 02/29/24 Plan of Care End Date 06/24/24 Therapeutic Interventions Therapeutic Interventions Home Exercise Program,Joint Mobilizations,Manual Therapy, Neuromuscular Re-education, Self-Care/Home Management,Soft Tissue Mobilization,Taping, Therapeutic Activities, Therapeutic Exercises Modalities Biofeedback,Cold Pack/Ice Massage Next Visit Focus/Plan Next Note Type Treatment Note Next Visit Plan Assess bladder diary and make recommendations as appropriate . Assess for DR. MOURA PF assessment. Assess for Sacral balancing. Education: PF contractions in isolation of substitute muscles, coordination of proper breaths with ADLs, transfers, body mechanics ( baby care) and exercise ( general ex program to start). Ther Ex: Trunk stretch (Flex, R SB & Rot). Strengthening L hip ER, upper back and abdominals. PF strengthening in isolation of substitute muscles. STM: Upper and lower back. POC: Pt education, Manual therapy. Biofeedback with vaginal sensor for PF >< awareness and strengthening, Therapeutic Exercises, Therapeutic Activities, Neuromuscular Reeducation, STM , Modalities (IFES, MH, cold pack). Plan of Care Dates Plan of Care Start Date 02/29/24 Plan of Care End Date 06/24/24 Electronically Signed by: Janneth Santacruz, PT 03/01/24 [id number] If you are in agreement with this Plan of Care, please return a signed and dated copy. I have reviewed this Plan of Care and certify that the skilled therapy services above are required to meet the patient?s needs. Physician Signature Date Printed Name and Credentials Clinical Instructor Signature Printed Name and Credentials
--- NOTE | 2024-03-07 12:36 | PT.OTN ---
Current Diagnoses Low back pain, unspecified (03/07/24) Pain in thoracic spine (03/07/24) Stress incontinence (female) (male) (03/07/24) Urge incontinence (03/07/24) Unspecified dyspareunia (03/07/24) Physical Therapy Treatment Note PT-OP-A Visit Information Start: 01/31/24 13:11 Freq: Status: Active Protocol: Document 03/07/24 11:29 LRN (Rec: 03/07/24 12:36 LRN [id number]) Out-Patient Physical Therapy Visit Information Visit Information Visit Type Treatment Note Visit Start Time 10:30 Visit Stop Time 12:15 Visit Number 04/18 Evaluation Information Evaluation Date 02/29/24 Precautions Precautions 9 months post-, at nighttime, 1G1P. PT-OP-B Current Condition Start: 01/31/24 13:11 Freq: Status: Active Protocol: Document 02/29/24 11:39 LRN (Rec: 02/29/24 12:38 LRN [id number]) Current Condition History of Current Condition Onset Date 05/23/23 Current Complaints Urinary incontinenace. History of Current Condition 9 month , baby (baby 5#, 1 oz.) was delivered vaginally without tearing, with epidural, 4 wks early. She is still breast feeding, but only at night. Problems of constipation during is resolved. She reports urinary leakage occasionally with sneeze ( while sitting cross legged, of if not lissy before sneezing, and jumping jacks). She is currently on control (IUD good for a few years). 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 She reports pain with intercourse, jolt sometimes with initial first few insertions. Prior Treatments and Tests PT for urinary incontinence when 27 wks . Developmental History Developmental History Pt is a traveling OT, off work until next fall. She was seen at 27 weeks for stress urinary incontinence. She had had urinary leakage for 2-3 yrs prior to and was doing [employer] ex's from the [place] [employer]. During she had stress urinary leakage and constipation. Treatment Goals Patient/Caregiver Goals - Not to leak with physical activity. - no pain with intercourse. Personal Factors Other Personal Factors That May Effect History of urinary Therapy/Recovery incontinence 1-2 yrs prior to , pain with intercourse prior to , and urinary incontinecne after 27 wks of . PT-OP-C Subjective Start: 01/31/24 13:11 Freq: Status: Active Protocol: Document 03/07/24 11:29 LRN (Rec: 03/07/24 12:36 LRN [id number]) OP-PT Subjective Patient Comments Patient Comments Stopped , so sleep is good. No issues holding urine, even with urgency. Only leaked x2, sneezes no leakage even with sitting cross legged. PT-OP-I Pelvic Floor Start: 01/31/24 13:11 Freq: Status: Active Protocol: Document 03/07/24 11:29 LRN (Rec: 03/07/24 12:36 LRN [id number]) Pelvic Floor Assessment SEMG (uV) Baseline 4.7 Comments Pelvic Floor Comments 10 reps strength (uV's): avg work , avg rest . 20 reps strength (uV's): avg work , avg rest . Long Holds: 10 reps strength (uV's): avg work , avg rest . 20 reps strength (uV's): avg work , avg rest . PT-OP-J Posture/Palpation/Skin Start: 01/31/24 13:11 Freq: Status: Active Protocol: Document 02/29/24 11:39 LRN (Rec: 02/29/24 12:38 LRN [id number]) Posture Evaluation Position Standing Head/C-Spine Posture Forward Head L-Spine Posture Increased Lordosis,Shifted Left Pelvis Posture Anteriorly Tilted Weight Distribution Balanced PT-OP-K Range of Motion Start: 01/31/24 13:11 Freq: Status: Active Protocol: Document 02/29/24 11:39 LRN (Rec: 02/29/24 12:38 LRN [id number]) Lumbar Spine Range of Motion Lumbar Spine Active Degrees Testing Position Standing Flexion 90 Rotation Left 15 Rotation Right 10 Lateral Flexion Left 15 Lateral Flexion Right 10 Hip Goniometric Range of Motion Hip Right Passive Testing Position Supine Internal Rotation 30 External Rotation 90 Left Passive Internal Rotation 30 External Rotation 90 PT-OP-M Strength Start: 01/31/24 13:11 Freq: Status: Active Protocol: Document 02/29/24 11:39 LRN (Rec: 02/29/24 12:38 LRN [id number]) Trunk Strength Trunk Manual Muscle Testing Core Stabilization Loss of core stabiity with rotational stress applied Hip Strength Hip Manual Muscle Testing Right Comments Strength is 5/5. Hip extension caused LBP onset at ~L5-S1. Left External Rotation 3 Fair Comments Strength is 5/5 except as indicated above. PT-OP-Q Treatments Start: 01/31/24 13:11 Freq: Status: Active Protocol: Document 03/07/24 11:29 LRN (Rec: 03/07/24 12:36 LRN [id number]) Therapeutic Exercises Supine Exercises Long Hold PF contractions Supine Exercise Name Long hold Kegels Equipment Used Bolster under legs. Reps/Minutes 10 SH/10 SR Comments A little fatigue after 3 SH, extra time to isolate Kegel Quick Contractions Supine Exercise Name Quick contraction Kegels - isolating kegel, extra time needed Equipment Used Bolster under legs. Reps/Minutes 2 SH/4 SR x 20 Comments Pt fatigued a little per resting tone decr after 11 reps, & after 15 reps. Therapeutic Activity Therapeutic Activity Transfer trng w/Kegel/breath Name Transfer stand<>sit<>supine. Reps/Minutes 12' Comments Cued to coordinate breath with Kegel and mvmt/ Self-Care/Home Management Treatment Education Caregiver Education Reviewed Bladder dairy and discussed fluid intake (AM/PM) , & nighttime voiding frequency reduction with change in amt of nighttime fluid intake. Educated and discussed bladder irritants. Pt voiding is every hours with bladder irrtants, otherwise every 2-4 hrs. Pt to request bladder retraining if needed. Other Education Issued bladder irritant handout. PT-OP-T Assessment and Plan Start: 01/31/24 13:11 Freq: Status: Active Protocol: Document 03/07/24 11:29 LRN (Rec: 03/07/24 12:36 LRN [id number]) Physical Therapy Assessment Goals 4 Impairment Low back and upper back pain rated 3/10. Short Term Goal (STG) Pt will be educated and demonstrate knowledge of proper body mechanics for childcare and improve standing posture. STG Duration 04/29/24 Longterm Goal (LTG) Decrease upper and lower back pain to no more than 1/10 with modifications to positioning. LTG Duration 06/24/24 3 Impairment Pain with intercourse Short Term Goal (STG) Pt will be educated and perform PF trP stretching for self care. STG Duration 04/29/24 Longterm Goal (LTG) Reduce PF pain to no pain with intercourse. LTG Duration 06/24/24 2 Impairment Stress Urinary Incontinence ( JOHN) w/sneeze & exercise. Short Term Goal (STG) Pt is not able to perform a PF contraction in the absence of abdominal/gluteal/hip AD muscles. STG Duration 04/29/24 Experimental Technician Goal (LTG) Improve PF strength to 3/5 with no urinary leakage with physical activity (not to include jumping). LTG Duration 06/24/24 1 Impairment Lacks appropriate self care HEP Short Term Goal (STG) Pt will demonstrate knowledge of use of urge deference technique and be educated and able to demonstrate core pressure management with transfers. 03/07/24: Pt demonstrates knowledgle of urge deference technique, but pt able to maintain continence without use of techniques. Initiated core pressure mgmt with transfers. STG Duration 04/29/24 progressed (core pressure mgmt review- issue handout) Longterm Goal (LTG) Pt will be educated in a self care HEP of PF/ L hip (ER/ext) strengthening, and trunk AROM R rot & SB stretches. LTG Duration 06/24/24 Assessment Summary Assessment 28 yo female w/JOHN & insertional dyspareunia, decr' d trunk AROM (R rot& SB), weak L hip ER & pain with R hip ext. Today, pt notes using urge technique, but feels she can keep from leaking w/o the urge deference technique; therefore no further training unless freq of urination is too often (pt to notify PT if bladder retraining is needed). Pt demonstrates a strong PF contraction, but slow to relax ; long holds decreased after ~ 3 secs, pt may be using gluteals to hold contraction as she gets discomfort posteriorly after contractions . Physical Therapy Plan Frequency and Duration Frequency of Treatment 1x/Week Duration of treatment (weeks) 16 Plan of Care Start Date 02/29/24 Plan of Care End Date 06/24/24 Next Visit Focus/Plan Next Note Type Treatment Note Next Visit Plan Review Deep breathing for ms relaxation. Assess for DR. MOURA PF assessment with gluteals. Assess/rx Sacral balancing for LBP. ? Manual therapy to stretch PF and issue wand for self stretch HEP. Education: PF contractions in isolation of substitute muscles, coordination of proper breaths with ADLs, transfers, body mechanics ( baby care) and exercise ( general ex program to start). Ther Ex: Trunk stretch (Flex, R SB & Rot). Strengthening L hip ER, upper back and abdominals. PF strengthening in isolation of substitute muscles. Educate in proper posture with awareness of her postural changes (lordosis) STM: Upper and lower back. POC: Pt education, Manual therapy. Biofeedback with vaginal sensor for PF >< awareness and strengthening, Therapeutic Exercises, Therapeutic Activities, Neuromuscular Reeducation, STM , Modalities (IFES, MH,
--- NOTE | 2024-03-14 12:51 | PT.OTN ---
Current Diagnoses Low back pain, unspecified (03/14/24) Pain in thoracic spine (03/14/24) Stress incontinence (female) (male) (03/14/24) Urge incontinence (03/14/24) Unspecified dyspareunia (03/14/24) Physical Therapy Treatment Note PT-OP-A Visit Information Start: 01/31/24 13:11 Freq: Status: Active Protocol: Document 03/14/24 11:29 LRN (Rec: 03/14/24 12:50 LRN [id number]) Out-Patient Physical Therapy Visit Information Visit Information Visit Type Treatment Note Visit Start Time 11:29 Visit Stop Time 12:14 Visit Number 05/16 Evaluation Information Evaluation Date 02/29/24 Precautions Precautions 9 months post-, at nighttime, 1G1P. PT-OP-B Current Condition Start: 01/31/24 13:11 Freq: Status: Active Protocol: Document 02/29/24 11:39 LRN (Rec: 02/29/24 12:38 LRN [id number]) Current Condition History of Current Condition Onset Date 05/23/23 Current Complaints Urinary incontinenace. History of Current Condition 9 month , baby (baby 5#, 1 oz.) was delivered vaginally without tearing, with epidural, 4 wks early. She is still breast feeding, but only at night. Problems of constipation during is resolved. She reports urinary leakage occasionally with sneeze ( while sitting cross legged, of if not lissy before sneezing, and jumping jacks). She is currently on control (IUD good for a few years). 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 She reports pain with intercourse, jolt sometimes with initial first few insertions. Prior Treatments and Tests PT for urinary incontinence when 27 wks . Developmental History Developmental History Pt is a traveling OT, off work until next fall. She was seen at 27 weeks for stress urinary incontinence. She had had urinary leakage for 2-3 yrs prior to and was doing [employer] ex's from the [employer]. During she had stress urinary leakage and constipation. Treatment Goals Patient/Caregiver Goals - Not to leak with physical activity. - no pain with intercourse. Personal Factors Other Personal Factors That May Effect History of urinary Therapy/Recovery incontinence 1-2 yrs prior to , pain with intercourse prior to , and urinary incontinecne after 27 wks of . PT-OP-C Subjective Start: 01/31/24 13:11 Freq: Status: Active Protocol: Document 03/14/24 11:29 LRN (Rec: 03/14/24 12:50 LRN [id number]) OP-PT Subjective Patient Comments Patient Comments LB yesterday and this morning is more sensitive than usual, 05/02. PT-OP-I Pelvic Floor Start: 01/31/24 13:11 Freq: Status: Active Protocol: Document 03/14/24 11:29 LRN (Rec: 03/14/24 12:50 LRN [id number]) Pelvic Floor Assessment Comments Pelvic Floor Comments PF contractions (late entry for date 03/07/24: 10 reps strength (uV's): avg work 12.0, avg rest 6.2. 20 reps strength (uV's): avg work 11.9, avg rest 5.7. Long Holds: 10 reps strength (uV's): avg work 12.5, avg rest 3.9. 20 reps strength (uV's): avg work 12.2, avg rest .0. PT-OP-J Posture/Palpation/Skin Start: 01/31/24 13:11 Freq: Status: Active Protocol: Document 02/29/24 11:39 LRN (Rec: 02/29/24 12:38 LRN [id number]) Posture Evaluation Position Standing Head/C-Spine Posture Forward Head L-Spine Posture Increased Lordosis,Shifted Left Pelvis Posture Anteriorly Tilted Weight Distribution Balanced PT-OP-K Range of Motion Start: 01/31/24 13:11 Freq: Status: Active Protocol: Document 02/29/24 11:39 LRN (Rec: 02/29/24 12:38 LRN [id number]) Lumbar Spine Range of Motion Lumbar Spine Active Degrees Testing Position Standing Flexion 90 Rotation Left 15 Rotation Right 10 Lateral Flexion Left 15 Lateral Flexion Right 10 Hip Goniometric Range of Motion Hip Right Passive Testing Position Supine Internal Rotation 30 External Rotation 90 Left Passive Internal Rotation 30 External Rotation 90 PT-OP-M Strength Start: 01/31/24 13:11 Freq: Status: Active Protocol: Document 02/29/24 11:39 LRN (Rec: 02/29/24 12:38 LRN [id number]) Trunk Strength Trunk Manual Muscle Testing Core Stabilization Loss of core stabiity with rotational stress applied Hip Strength Hip Manual Muscle Testing Right Comments Strength is 5/5. Hip extension caused LBP onset at ~L5-S1. Left External Rotation 3 Fair Comments Strength is 5/5 except as indicated above. PT-OP-Q Treatments Start: 01/31/24 13:11 Freq: Status: Active Protocol: Document 03/14/24 11:29 LRN (Rec: 03/14/24 12:50 LRN [id number]) Therapeutic Exercises Supine Exercises TA with head lifts Supine Exercise Name TA tightening w/head lifts Reps/Minutes 10' Comments assessed DR during head lifts. Sitting Exercises Kegel w/hips in IR Sitting Exercise Name Kegel w/hips in IR Reps/Minutes 2' Standing Exercises Kegel w/hips in IR Standing Exercise Name Kegel w/hips in IR Reps/Minutes 3' Neuro Re-Education Treatment Other Activities Isolated Kegel trng Details Kegels in isolation of ABdominals and Gluteals: Quick & Long holds Reps/Duration 30' Comments Vemg, and external PPF & external Abdominal. PT-OP-T Assessment and Plan Start: 01/31/24 13:11 Freq: Status: Active Protocol: Document 03/14/24 11:29 LRN (Rec: 03/14/24 12:50 LRN [id number]) Physical Therapy Assessment Goals 4 Impairment Low back and upper back pain rated 3/10. Short Term Goal (STG) Pt will be educated and demonstrate knowledge of proper body mechanics for childcare and improve standing posture. STG Duration 04/29/24 Radiation Protection Technician Goal (LTG) Decrease upper and lower back pain to no more than 1/10 with modifications to positioning. LTG Duration 06/24/24 3 Impairment Pain with intercourse Short Term Goal (STG) Pt will be educated and perform PF trP stretching for self care. STG Duration 04/29/24 Intermediate Goal (LTG) Reduce PF pain to no pain with intercourse. LTG Duration 06/24/24 2 Impairment Stress Urinary Incontinence ( JOHN) w/sneeze & exercise. Short Term Goal (STG) Pt is not able to perform a PF contraction in the absence of abdominal/gluteal/hip AD muscles. STG Duration 04/29/24 Radiation Protection Technician Goal (LTG) Improve PF strength to 3/5 with no urinary leakage with physical activity (not to include jumping). LTG Duration 06/24/24 1 Impairment Lacks appropriate self care HEP Short Term Goal (STG) Pt will demonstrate knowledge of use of urge deference technique and be educated and able to demonstrate core pressure management with transfers. 03/07/24: Pt demonstrates knowledgle of urge deference technique, but pt able to maintain continence without use of techniques. Initiated core pressure mgmt with transfers. STG Duration 04/29/24 progressed (core pressure mgmt review- issue handout) Intermediate Goal (LTG) Pt will be educated in a self care HEP of PF/ L hip (ER/ext) strengthening, and trunk AROM R rot & SB stretches. LTG Duration 06/24/24 Assessment Summary Assessment No significant DR noted but very shallow pressent around umbilicus (Above Umbilicus 3 above: Closed, Umbilicus 2 above: 1.5 finger widths, very very, very shallow, Umbilicus 1 above: 2 finger widths, very shallow; Below Umbilicus: 1 below: 2.0 finger widths, very shallow, Umbilicus: 2 below: 1.0 finger width, very, very shallow, Umbilicus: 3 below: Closed). With supine PF contractions she is able to isolate PF from abdominals well, PF strength is less in sup & stand. Gluteal isolation is fair in supine, poor in sitting and good in standing although strength of contractions and endurance is low. Physical Therapy Plan Frequency and Duration Frequency of Treatment 1x/Week Duration of treatment (weeks) 16 Plan of Care Start Date 02/29/24 Plan of Care End Date 06/24/24 Next Visit Focus/Plan Next Note Type Treatment Note Next Visit Plan Review Deep breathing for ms relaxation. Neural Re-ed trng for Kegel in isolation of gluteals in sup & stand (later if needed, abdominals strengthen in sup & standing). Assess/rx Sacral balancing for LBP. Ther Ex: Trunk stretch (Flex, R SB & Rot). Strengthening L hip ER, upper back and abdominals. ? Manual therapy to stretch PF and issue wand for self stretch HEP. Education: PF contractions in isolation of substitute muscles, coordination of proper breaths with ADLs, transfers, body mechanics ( baby care) and exercise ( general ex program to start). Educate in proper posture with awareness of her postural changes (lordosis) As needed, STM: Upper and lower back. POC: Pt education, Manual therapy. Biofeedback with vaginal sensor for PF >< awareness and strengthening, Therapeutic Exercises, Therapeutic Activities, Neuromuscular Reeducation, STM , Modalities (IFES, MH,
--- NOTE | 2024-03-24 19:19 | PT.OTN ---
Current Diagnoses Low back pain, unspecified (03/24/24) Pain in thoracic spine (03/24/24) Stress incontinence (female) (male) (03/24/24) Urge incontinence (03/24/24) Unspecified dyspareunia (03/24/24) Physical Therapy Treatment Note PT-OP-A Visit Information Start: 01/31/24 13:11 Freq: Status: Active Protocol: Document 03/24/24 09:07 LRN (Rec: 03/24/24 09:47 LRN [id number]) Out-Patient Physical Therapy Visit Information Visit Information Visit Type Initial Evaluation Visit Start Time 09:07 Visit Stop Time 09:45 Visit Number 06/16 Evaluation Information Evaluation Date 02/29/24 Precautions Precautions Post- (05/23/23), at nighttime, 1G1P. PT-OP-B Current Condition Start: 01/31/24 13:11 Freq: Status: Active Protocol: Document 02/29/24 11:39 LRN (Rec: 02/29/24 12:38 LRN [id number]) Current Condition History of Current Condition Onset Date 05/23/23 Current Complaints Urinary incontinenace. History of Current Condition 9 month , baby (baby 5#, 1 oz.) was delivered vaginally without tearing, with epidural, 4 wks early. She is still breast feeding, but only at night. Problems of constipation during is resolved. She reports urinary leakage occasionally with sneeze ( while sitting cross legged, of if not lissy before sneezing, and jumping jacks). She is currently on control (IUD good for a few years). 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 She reports pain with intercourse, jolt sometimes with initial first few insertions. Prior Treatments and Tests PT for urinary incontinence when 27 wks . Developmental History Developmental History Pt is a traveling OT, off work until next fall. She was seen at 27 weeks for stress urinary incontinence. She had had urinary leakage for 2-3 yrs prior to and was doing [employer] ex's from the [employer]. During she had stress urinary leakage and constipation. Treatment Goals Patient/Caregiver Goals - Not to leak with physical activity. - no pain with intercourse. Personal Factors Other Personal Factors That May Effect History of urinary Therapy/Recovery incontinence 1-2 yrs prior to , pain with intercourse prior to , and urinary incontinecne after 27 wks of . PT-OP-C Subjective Start: 01/31/24 13:11 Freq: Status: Active Protocol: Document 03/24/24 09:07 LRN (Rec: 03/24/24 09:47 LRN [id number]) OP-PT Subjective Patient Comments Patient Comments Pt reports leaving on vacation , flying with spouse and baby. PT-OP-I Pelvic Floor Start: 01/31/24 13:11 Freq: Status: Active Protocol: Document 03/24/24 09:07 LRN (Rec: 03/24/24 09:47 LRN [id number]) Pelvic Floor Assessment Comments Pelvic Floor Comments Supine: Quick: PF 9.9, Glut 3. 2; Long Hold: PF 6.8, Glut 0.7 . Sit: Quick: 7.4, Glut 2.7; Long Hold 14.0, Glut 2.0. Resting ~2.5. Stand: Quick PF 4.5, Glut 0. 9; Long Hold 1.8, Glut 1.0. PT-OP-J Posture/Palpation/Skin Start: 01/31/24 13:11 Freq: Status: Active Protocol: Document 02/29/24 11:39 LRN (Rec: 02/29/24 12:38 LRN [id number]) Posture Evaluation Position Standing Head/C-Spine Posture Forward Head L-Spine Posture Increased Lordosis,Shifted Left Pelvis Posture Anteriorly Tilted Weight Distribution Balanced PT-OP-K Range of Motion Start: 01/31/24 13:11 Freq: Status: Active Protocol: Document 02/29/24 11:39 LRN (Rec: 02/29/24 12:38 LRN [id number]) Lumbar Spine Range of Motion Lumbar Spine Active Degrees Testing Position Standing Flexion 90 Rotation Left 15 Rotation Right 10 Lateral Flexion Left 15 Lateral Flexion Right 10 Hip Goniometric Range of Motion Hip Right Passive Testing Position Supine Internal Rotation 30 External Rotation 90 Left Passive Internal Rotation 30 External Rotation 90 PT-OP-M Strength Start: 01/31/24 13:11 Freq: Status: Active Protocol: Document 02/29/24 11:39 LRN (Rec: 02/29/24 12:38 LRN [id number]) Trunk Strength Trunk Manual Muscle Testing Core Stabilization Loss of core stabiity with rotational stress applied Hip Strength Hip Manual Muscle Testing Right Comments Strength is 5/5. Hip extension caused LBP onset at ~L5-S1. Left External Rotation 3 Fair Comments Strength is 5/5 except as indicated above. PT-OP-Q Treatments Start: 01/31/24 13:11 Freq: Status: Active Protocol: Document 03/24/24 09:07 LRN (Rec: 03/24/24 18:46 LRN [id number]) Neuro Re-Education Treatment Other Activities Isolated Kegel trng Details Isolation from Gluts: Supine, sit & stand - Quick & Long hold Kegels Reps/Duration 38' Comments See PF for strength values. PT-OP-T Assessment and Plan Start: 01/31/24 13:11 Freq: Status: Active Protocol: Document 03/24/24 09:07 LRN (Rec: 03/24/24 09:47 LRN [id number]) Physical Therapy Assessment Goals 4 Impairment Low back and upper back pain rated 3/10. Short Term Goal (STG) Pt will be educated and demonstrate knowledge of proper body mechanics for childcare and improve standing posture. STG Duration 04/29/24 Half-Way Goal (LTG) Decrease upper and lower back pain to no more than 1/10 with modifications to positioning. LTG Duration 06/24/24 3 Impairment Pain with intercourse Short Term Goal (STG) Pt will be educated and perform PF trP stretching for self care. STG Duration 04/29/24 Half-Way Goal (LTG) Reduce PF pain to no pain with intercourse. LTG Duration 06/24/24 2 Impairment Stress Urinary Incontinence ( JOHN) w/sneeze & exercise. Short Term Goal (STG) Pt is not able to perform a PF contraction in the absence of abdominal/gluteal/hip AD muscles. 03/24/24: Pt able to perform a PF contraction in abscence of abdominal/gluteal assist. STG Duration 04/29/24 progressed 03/24/24 (need hip AD assessed) Half-Way Goal (LTG) Improve PF strength to 3/5 with no urinary leakage with physical activity (not to include jumping). LTG Duration 06/24/24 1 Impairment Lacks appropriate self care HEP Short Term Goal (STG) Pt will demonstrate knowledge of use of urge deference technique and be educated and able to demonstrate core pressure management with transfers. 03/07/24: Pt demonstrates knowledgle of urge deference technique, but pt able to maintain continence without use of techniques. Initiated core pressure mgmt with transfers. STG Duration 04/29/24 progressed (core pressure mgmt review- issue handout) Public Health Informatician Goal (LTG) Pt will be educated in a self care HEP of PF/ L hip (ER/ext) strengthening, and trunk AROM R rot & SB stretches. LTG Duration 06/24/24 Assessment Summary Assessment 28 yo female w/JOHN & insertional dyspareunia, decr' d trunk AROM (R rot& SB), weak L hip ER & pain with R hip ext. Her deep breathing mechanics is more chest than abdominal. Today, pt showed ability to contract PF w/less Glut tone using breathwork of exhale-contraction & inhale- relax, she was able to get a quicker release of her PF after contractions. PF strength sup/sit is fair, sit long hold is good. Standing Quick & Long hold is weak; therefore further strengthening in standing is needed. Physical Therapy Plan Next Visit Focus/Plan Next Note Type Treatment Note Next Visit Plan Monitor for improved Deep breathing. Neural Re-ed trng for Kegel in isolation of gluteals in stand > sit ( assess for hip AD assist in sup & sit STG2). Then assess/ rx Sacral balancing for LBP. Ther Ex: Trunk stretch (Flex, R SB & Rot). Strengthening L hip ER, upper back and abdominals. Core pressure mgmt review- issue handout (STG1), educate: coordination of proper breaths with ADLs (STG4), transfers (STG1), body mechanics (baby care) (STG4) and exercise (general ex program to start). ? Manual therapy to stretch PF and issue wand for self stretch HEP. Educate in proper posture with awareness of her postural changes (lordosis) As needed, STM: Upper and lower back. POC: Pt education, Manual therapy. Biofeedback with vaginal sensor for PF >< awareness and strengthening, Therapeutic Exercises, Therapeutic Activities, Neuromuscular Reeducation, STM , Modalities (IFES, MH,
--- NOTE | 2024-04-04 13:20 | PT.OTN ---
Current Diagnoses Low back pain, unspecified (04/04/24) Pain in thoracic spine (04/04/24) Stress incontinence (female) (male) (04/04/24) Urge incontinence (04/04/24) Unspecified dyspareunia (04/04/24) Physical Therapy Treatment Note PT-OP-A Visit Information Start: 01/31/24 13:11 Freq: Status: Active Protocol: Document 04/04/24 10:47 LRN (Rec: 04/04/24 11:30 LRN [id number]) Out-Patient Physical Therapy Visit Information Visit Information Visit Type Treatment Note Visit Start Time 10:47 Visit Stop Time 11:25 Visit Number 07/16 Evaluation Information Evaluation Date 02/29/24 Precautions Precautions Post- (05/23/23), at nighttime, 1G1P. PT-OP-B Current Condition Start: 01/31/24 13:11 Freq: Status: Active Protocol: Document 02/29/24 11:39 LRN (Rec: 02/29/24 12:38 LRN [id number]) Current Condition History of Current Condition Onset Date 05/23/23 Current Complaints Urinary incontinenace. History of Current Condition 9 month , baby (baby 5#, 1 oz.) was delivered vaginally without tearing, with epidural, 4 wks early. She is still breast feeding, but only at night. Problems of constipation during is resolved. She reports urinary leakage occasionally with sneeze ( while sitting cross legged, of if not lissy before sneezing, and jumping jacks). She is currently on control (IUD good for a few years). 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 She reports pain with intercourse, jolt sometimes with initial first few insertions. Prior Treatments and Tests PT for urinary incontinence when 27 wks . Developmental History Developmental History Pt is a traveling OT, off work until next fall. She was seen at 27 weeks for stress urinary incontinence. She had had urinary leakage for 2-3 yrs prior to and was doing [employer] ex's from the [place]. During she had stress urinary leakage and constipation. Treatment Goals Patient/Caregiver Goals - Not to leak with physical activity. - no pain with intercourse. Personal Factors Other Personal Factors That May Effect History of urinary Therapy/Recovery incontinence 1-2 yrs prior to , pain with intercourse prior to , and urinary incontinecne after 27 wks of . PT-OP-C Subjective Start: 01/31/24 13:11 Freq: Status: Active Protocol: Document 04/04/24 10:47 LRN (Rec: 04/04/24 11:30 LRN [id number]) OP-PT Subjective Patient Comments Patient Comments Past wk no leakage. Sneezed/ coughed and was able to do Kegel w/o leakage. Spotting from period; therefore did not bring electrolde. PT-OP-I Pelvic Floor Start: 01/31/24 13:11 Freq: Status: Active Protocol: Document 03/24/24 09:07 LRN (Rec: 03/24/24 09:47 LRN [id number]) Pelvic Floor Assessment Comments Pelvic Floor Comments Supine: Quick: PF 9.9, Glut 3. 2; Long Hold: PF 6.8, Glut 0.7 . Sit: Quick: 7.4, Glut 2.7; Long Hold 14.0, Glut 2.0. Resting ~2.5. Stand: Quick PF 4.5, Glut 0. 9; Long Hold 1.8, Glut 1.0. PT-OP-J Posture/Palpation/Skin Start: 01/31/24 13:11 Freq: Status: Active Protocol: Document 02/29/24 11:39 LRN (Rec: 02/29/24 12:38 LRN [id number]) Posture Evaluation Position Standing Head/C-Spine Posture Forward Head L-Spine Posture Increased Lordosis,Shifted Left Pelvis Posture Anteriorly Tilted Weight Distribution Balanced PT-OP-K Range of Motion Start: 01/31/24 13:11 Freq: Status: Active Protocol: Document 02/29/24 11:39 LRN (Rec: 02/29/24 12:38 LRN [id number]) Lumbar Spine Range of Motion Lumbar Spine Active Degrees Testing Position Standing Flexion 90 Rotation Left 15 Rotation Right 10 Lateral Flexion Left 15 Lateral Flexion Right 10 Hip Goniometric Range of Motion Hip Right Passive Testing Position Supine Internal Rotation 30 External Rotation 90 Left Passive Internal Rotation 30 External Rotation 90 PT-OP-M Strength Start: 01/31/24 13:11 Freq: Status: Active Protocol: Document 02/29/24 11:39 LRN (Rec: 02/29/24 12:38 LRN [id number]) Trunk Strength Trunk Manual Muscle Testing Core Stabilization Loss of core stabiity with rotational stress applied Hip Strength Hip Manual Muscle Testing Right Comments Strength is 5/5. Hip extension caused LBP onset at ~L5-S1. Left External Rotation 3 Fair Comments Strength is 5/5 except as indicated above. PT-OP-Q Treatments Start: 01/31/24 13:11 Freq: Status: Active Protocol: Document 04/04/24 10:47 LRN (Rec: 04/04/24 11:30 LRN [id number]) Manual Therapy Treatment Soft Tissue Mobilization Sacral balancing Body Location Sacrum, Ileums Mobilization Type Sustained Pressure Intensity/Depth Moderate Body Position Prone & Sup Comments LSacral Sulcus PA & inferior glide Sacral shear to R FRANCESCA selam PA Ischial Tub PA - testing found slightly tigher on L. 6 pt balancing Pubic Rami R superior glide Log roll transfer training after treatment with emphasis on not sitting one legged crossed or shruthi cross appleauce and for equal LE WBing on standing. PT-OP-T Assessment and Plan Start: 01/31/24 13:11 Freq: Status: Active Protocol: Document 04/04/24 10:47 LRN (Rec: 04/04/24 11:30 LRN [id number]) Physical Therapy Assessment Goals 4 Impairment Low back and upper back pain rated 3/10. Short Term Goal (STG) Pt will be educated and demonstrate knowledge of proper body mechanics for childcare and improve standing posture. STG Duration 04/29/24 Assisted Goal (LTG) Decrease upper and lower back pain to no more than 1/10 with modifications to positioning. LTG Duration 06/24/24 3 Impairment Pain with intercourse Short Term Goal (STG) Pt will be educated and perform PF trP stretching for self care. STG Duration 04/29/24 Clamshell Operator Goal (LTG) Reduce PF pain to no pain with intercourse. LTG Duration 06/24/24 2 Impairment Stress Urinary Incontinence ( JOHN) w/sneeze & exercise. Short Term Goal (STG) Pt is not able to perform a PF contraction in the absence of abdominal/gluteal/hip AD muscles. 03/24/24: Pt able to perform a PF contraction in abscence of abdominal/gluteal assist. STG Duration 04/29/24 progressed 03/24/24 (need hip AD assessed) Assisted Goal (LTG) Improve PF strength to 3/5 with no urinary leakage with physical activity (not to include jumping). LTG Duration 06/24/24 1 Impairment Lacks appropriate self care HEP Short Term Goal (STG) Pt will demonstrate knowledge of use of urge deference technique and be educated and able to demonstrate core pressure management with transfers. 03/07/24: Pt demonstrates knowledgle of urge deference technique, but pt able to maintain continence without use of techniques. Initiated core pressure mgmt with transfers. STG Duration 04/29/24 progressed (core pressure mgmt review- issue handout) Assisted Goal (LTG) Pt will be educated in a self care HEP of PF/ L hip (ER/ext) strengthening, and trunk AROM R rot & SB stretches. LTG Duration 06/24/24 Assessment Summary Assessment Sacral balancing needed to improve hip mobility without groin pain. S/p manual pelvis L rotated in supine. It may take extra time to correct pelvic positioning due to pt's habitually asymmetry with sitting and transfers sits w/R leg crossed or R leg crossed under the L leg and pops up from sidelie with L leg extended). Physical Therapy Plan Frequency and Duration Frequency of Treatment 1x/Week Duration of treatment (weeks) 16 Plan of Care Start Date 02/29/24 Plan of Care End Date 06/24/24 Next Visit Focus/Plan Next Note Type Treatment Note Next Visit Plan Assess response to sacral balancing (for LBP) and address Iliopsoas tightness. Monitor for log roll transfer to focus on stable core. Neural Re-ed trng for Kegel in isolation of gluteals in stand > sit (assess for hip AD assist in sup & sit STG2). Ther Ex & HEP: Trunk stretch (Flex, R SB & Rot). Strengthening L hip ER, upper back and abdominals. Self care: Issue handout for core pressure mgmt review(STG1 ), educate: coordination of proper breaths with ADLs (STG4 ), transfers (STG1), body mechanics (baby care) (STG4) and exercise (general ex program to start). ? Manual therapy to stretch PF and issue wand for self stretch HEP. Educate in proper posture with awareness of her postural changes (lordosis) Monitor for improved Deep breathing. STM (as needed): Upper and lower back. POC: Pt education, Manual therapy. Biofeedback with vaginal sensor for PF >< awareness and strengthening, Therapeutic Exercises, Therapeutic Activities, Neuromuscular Reeducation, STM , Modalities (IFES, )
--- NOTE | 2024-04-11 17:44 | PT.OTN ---
Current Diagnoses Low back pain, unspecified (04/11/24) Pain in thoracic spine (04/11/24) Stress incontinence (female) (male) (04/11/24) Urge incontinence (04/11/24) Unspecified dyspareunia (04/11/24) Physical Therapy Treatment Note PT-OP-A Visit Information Start: 01/31/24 13:11 Freq: Status: Active Protocol: Document 04/11/24 10:49 LRN (Rec: 04/11/24 11:32 LRN [id number]) Out-Patient Physical Therapy Visit Information Visit Information Visit Type Treatment Note Visit Start Time 10:49 Visit Stop Time 11:27 Visit Number 08/16 Evaluation Information Evaluation Date 02/29/24 PT-OP-B Current Condition Start: 01/31/24 13:11 Freq: Status: Active Protocol: Document 02/29/24 11:39 LRN (Rec: 02/29/24 12:38 LRN [id number]) Current Condition History of Current Condition Onset Date 05/23/23 Current Complaints Urinary incontinenace. History of Current Condition 9 month , baby (baby 5#, 1 oz.) was delivered vaginally without tearing, with epidural, 4 wks early. She is still breast feeding, but only at night. Problems of constipation during is resolved. She reports urinary leakage occasionally with sneeze ( while sitting cross legged, of if not lissy before sneezing, and jumping jacks). She is currently on control (IUD good for a few years). 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 She reports pain with intercourse, jolt sometimes with initial first few insertions. Prior Treatments and Tests PT for urinary incontinence when 27 wks . Developmental History Developmental History Pt is a traveling OT, off work until next fall. She was seen at 27 weeks for stress urinary incontinence. She had had urinary leakage for 2-3 yrs prior to and was doing [employer] ex's from the [employer]. During she had stress urinary leakage and constipation. Treatment Goals Patient/Caregiver Goals - Not to leak with physical activity. - no pain with intercourse. Personal Factors Other Personal Factors That May Effect History of urinary Therapy/Recovery incontinence 1-2 yrs prior to , pain with intercourse prior to , and urinary incontinecne after 27 wks of . PT-OP-C Subjective Start: 12/08/24 13:11 Freq: Status: Active Protocol: Document 04/11/24 10:49 LRN (Rec: 04/11/24 11:32 LRN [id number]) OP-PT Subjective Patient Comments Patient Comments 3 bouts of incont (2 sneezes and a cough) and had to change underwear. LB has been feeling good, since last session. Saw belly bulge with ex class doing crunches. PT-OP-I Pelvic Floor Start: 01/31/24 13:11 Freq: Status: Active Protocol: Document 04/11/24 10:49 LRN (Rec: 04/11/24 11:32 LRN [id number]) Pelvic Floor Assessment Comments Pelvic Floor Comments Supine: Resting is 1.4 Quick: PF 6.0 (max 12.3), Glut 2.5. Long Hold: PF 7.2 (max 10.6), Glut 1.6. Long Hold w/ball squeeze: PF 15.9, Glut 1.7. PT-OP-J Posture/Palpation/Skin Start: 01/31/24 13:11 Freq: Status: Active Protocol: Document 02/29/24 11:39 LRN (Rec: 02/29/24 12:38 LRN [id number]) Posture Evaluation Position Standing Head/C-Spine Posture Forward Head L-Spine Posture Increased Lordosis,Shifted Left Pelvis Posture Anteriorly Tilted Weight Distribution Balanced PT-OP-K Range of Motion Start: 01/31/24 13:11 Freq: Status: Active Protocol: Document 02/29/24 11:39 LRN (Rec: 02/29/24 12:38 LRN [id number]) Lumbar Spine Range of Motion Lumbar Spine Active Degrees Testing Position Standing Flexion 90 Rotation Left 15 Rotation Right 10 Lateral Flexion Left 15 Lateral Flexion Right 10 Hip Goniometric Range of Motion Hip Right Passive Testing Position Supine Internal Rotation 30 External Rotation 90 Left Passive Internal Rotation 30 External Rotation 90 PT-OP-M Strength Start: 01/31/24 13:11 Freq: Status: Active Protocol: Document 02/29/24 11:39 LRN (Rec: 02/29/24 12:38 LRN [id number]) Trunk Strength Trunk Manual Muscle Testing Core Stabilization Loss of core stabiity with rotational stress applied Hip Strength Hip Manual Muscle Testing Right Comments Strength is 5/5. Hip extension caused LBP onset at ~L5-S1. Left External Rotation 3 Fair Comments Strength is 5/5 except as indicated above. PT-OP-Q Treatments Start: 01/31/24 13:11 Freq: Status: Active Protocol: Document 04/11/24 10:49 LRN (Rec: 04/11/24 11:32 LRN [id number]) Therapeutic Exercises Supine Exercises Long Hold PF contractions Equipment Used Bolster under legs Reps/Minutes 10 SH /10 SR Comments Pt fatigues after ~8-10 reps. See PF Quick Contractions Equipment Used Bolster under legs Reps/Minutes 2 SH/4 SR x 20 Comments See PF Neuro Re-Education Treatment Other Activities Isolated Kegel trng Details Isolation from Gluts: Supine, sit & stand - Quick & Long hold Kegels Reps/Duration 23' Comments See PF for strength values. Self-Care/Home Management Treatment Activities Self-Care/Home Management Activities Reviewed & Issued: Handout for core pressure mgmt/Kegel with transfers. PT-OP-T Assessment and Plan Start: 01/31/24 13:11 Freq: Status: Active Protocol: Document 04/11/24 10:49 LRN (Rec: 04/11/24 11:32 LRN [id number]) Physical Therapy Assessment Goals 4 Impairment Low back and upper back pain rated 3/10. Short Term Goal (STG) Pt will be educated and demonstrate knowledge of proper body mechanics for childcare and improve standing posture. STG Duration 04/29/24 Assisted Goal (LTG) Decrease upper and lower back pain to no more than 1/10 with modifications to positioning. LTG Duration 06/24/24 3 Impairment Pain with intercourse Short Term Goal (STG) Pt will be educated and perform PF trP stretching for self care. STG Duration 04/29/24 Tree Scout Goal (LTG) Reduce PF pain to no pain with intercourse. LTG Duration 06/24/24 2 Impairment Stress Urinary Incontinence ( JOHN) w/sneeze & exercise. Short Term Goal (STG) Pt is not able to perform a PF contraction in the absence of abdominal/gluteal/hip AD muscles. 03/24/24: Pt able to perform a PF contraction in abscence of abdominal/gluteal assist. STG Duration 04/29/24 progressed 03/24/24 (need hip AD assessed) Assisted Goal (LTG) Improve PF strength to 3/5 with no urinary leakage with physical activity (not to include jumping). LTG Duration 06/24/24 1 Impairment Lacks appropriate self care HEP Short Term Goal (STG) Pt will demonstrate knowledge of use of urge deference technique and be educated and able to demonstrate core pressure management with transfers. 03/07/24: Pt demonstrates knowledgle of urge deference technique, but pt able to maintain continence without use of techniques. Initiated core pressure mgmt with transfers. 04/11/24: Educated & Issued: Handout for core pressure mgmt /Kegel with transfers. STG Duration 04/29/24 progressed (core pressure mgmt review- issue handout) [employer] Goal (LTG) Pt will be educated in a self care HEP of PF/ L hip (ER/ext) strengthening, and trunk AROM R rot & SB stretches. LTG Duration 06/24/24 Assessment Summary Assessment 28 yo female w/JOHN & insertional dyspareunia, decr' d trunk AROM (R rot& SB), weak L hip ER & pain with R hip ext. Her deep breathing mechanics is more chest than abdominal. Today, pt is leaking a little more since return from vacation (leaks with cough or sneeze). Supine Kegels, quick showed increased gluteal use, long hold kegel pt did not use gluteals, but had poor stability hold of contraction and PF weakness when isolating the PF. Physical Therapy Plan Frequency and Duration Frequency of Treatment 1x/Week Duration of treatment (weeks) 16 Plan of Care Start Date 02/29/24 Plan of Care End Date 06/24/24 Next Visit Focus/Plan Next Note Type Treatment Note Next Visit Plan Next: Address Iliopsoas tightness. Monitor for proper core pressure mgmt with log roll transfer (STG1) focusing on stable core. Neural Re-ed trng for Kegel in isolation of gluteals in stand (sit if time), and sup for strengthening, and practice quick Kegel w/cough (assess for hip AD assist in sup & sit STG2). Ther Ex & HEP: Trunk stretch (Flex, R SB & Rot). Strengthening L hip ER, upper back and abdominals. Self care: Issue handout for core pressure mgmt review(STG1), educate: coordination of proper breaths with ADLs (STG4 ), transfers (STG1), body mechanics (baby care) (STG4) and exercise (general ex program to start). ? Manual therapy to stretch PF and issue wand for self stretch HEP. Educate in proper posture with awareness of her postural changes (lordosis) Monitor for improved Deep breathing. STM (as needed): Upper and lower back. POC: Pt education, Manual therapy. Biofeedback with vaginal sensor for PF >< awareness and strengthening, Therapeutic Exercises, Therapeutic Activities, Neuromuscular Reeducation, STM , Modalities (IFES, MH)
--- NOTE | 2024-04-18 12:02 | PT.OTN ---
Current Diagnoses Low back pain, unspecified (04/18/24) Pain in thoracic spine (04/18/24) Stress incontinence (female) (male) (04/18/24) Urge incontinence (04/18/24) Unspecified dyspareunia (04/18/24) Physical Therapy Treatment Note PT-OP-A Visit Information Start: 01/31/24 13:11 Freq: Status: Active Protocol: Document 04/18/24 10:47 LRN (Rec: 04/18/24 12:02 LRN [id number]) Out-Patient Physical Therapy Visit Information Visit Information Visit Type Treatment Note Visit Start Time 10:47 Visit Stop Time 11:29 Visit Number 09/15 Evaluation Information Evaluation Date 02/29/24 Precautions Precautions Post- (05/23/23), 1G1P. (note: stopped ). PT-OP-B Current Condition Start: 01/31/24 13:11 Freq: Status: Active Protocol: Document 02/29/24 11:39 LRN (Rec: 02/29/24 12:38 LRN [id number]) Current Condition History of Current Condition Onset Date 05/23/23 Current Complaints Urinary incontinenace. History of Current Condition 9 month , baby (baby 5#, 1 oz.) was delivered vaginally without tearing, with epidural, 4 wks early. She is still breast feeding, but only at night. Problems of constipation during is resolved. She reports urinary leakage occasionally with sneeze ( while sitting cross legged, of if not lissy before sneezing, and jumping jacks). She is currently on control (IUD good for a few years). 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 She reports pain with intercourse, jolt sometimes with initial first few insertions. Prior Treatments and Tests PT for urinary incontinence when 27 wks . Developmental History Developmental History Pt is a traveling OT, off work until next fall. She was seen at 27 weeks for stress urinary incontinence. She had had urinary leakage for 2-3 yrs prior to and was doing kegel ex's from the [employer]. During she had stress urinary leakage and constipation. Treatment Goals Patient/Caregiver Goals - Not to leak with physical activity. - no pain with intercourse. Personal Factors Other Personal Factors That May Effect History of urinary Therapy/Recovery incontinence 1-2 yrs prior to , pain with intercourse prior to , and urinary incontinecne after 27 wks of . PT-OP-C Subjective Start: 01/31/24 13:11 Freq: Status: Active Protocol: Document 04/18/24 10:47 LRN (Rec: 04/18/24 12:02 LRN [id number]) OP-PT Subjective Patient Comments Patient Comments No significant change. PT-OP-I Pelvic Floor Start: 01/31/24 13:11 Freq: Status: Active Protocol: Document 04/18/24 10:47 LRN (Rec: 04/18/24 12:02 LRN [id number]) Pelvic Floor Assessment Comments Pelvic Floor Comments Supine: Quick Contraction ( Gluteal near sit bone): Resting: PF 3.1, Glut 0.8; Lissy: PF 10, Glut 0.8 : Long Hold: Resting PF 2.6, Glut 0.2; Lissy: PF 9- 11.4, Glut 0.5. Sit: Quick contraction: Resting: PF 4.4, Gluteal 0.7, Lissy: PF 12.0, Glut 1. 0 PT-OP-J Posture/Palpation/Skin Start: 01/31/24 13:11 Freq: Status: Active Protocol: Document 02/29/24 11:39 LRN (Rec: 02/29/24 12:38 LRN [id number]) Posture Evaluation Position Standing Head/C-Spine Posture Forward Head L-Spine Posture Increased Lordosis,Shifted Left Pelvis Posture Anteriorly Tilted Weight Distribution Balanced PT-OP-K Range of Motion Start: 01/31/24 13:11 Freq: Status: Active Protocol: Document 02/29/24 11:39 LRN (Rec: 02/29/24 12:38 LRN [id number]) Lumbar Spine Range of Motion Lumbar Spine Active Degrees Testing Position Standing Flexion 90 Rotation Left 15 Rotation Right 10 Lateral Flexion Left 15 Lateral Flexion Right 10 Hip Goniometric Range of Motion Hip Right Passive Testing Position Supine Internal Rotation 30 External Rotation 90 Left Passive Internal Rotation 30 External Rotation 90 PT-OP-M Strength Start: 01/31/24 13:11 Freq: Status: Active Protocol: Document 02/29/24 11:39 LRN (Rec: 02/29/24 12:38 LRN [id number]) Trunk Strength Trunk Manual Muscle Testing Core Stabilization Loss of core stabiity with rotational stress applied Hip Strength Hip Manual Muscle Testing Right Comments Strength is 5/5. Hip extension caused LBP onset at ~L5-S1. Left External Rotation 3 Fair Comments Strength is 5/5 except as indicated above. PT-OP-Q Treatments Start: 01/31/24 13:11 Freq: Status: Active Protocol: Document 04/18/24 10:47 LRN (Rec: 04/18/24 12:02 LRN [id number]) Therapeutic Exercises Supine Exercises Ilipsoas stretch Supine Exercise Name Off side of plinth KTC w/opp leg off plinth Side bilateral Reps/Minutes 20 SH x 3 Comments Extra time taken to determine max cristy stretch Other Exercises 1/2 kneel Other Exercise Name Ilipsoas stretch Side bilateral Reps/Minutes 20 SH x 3 Comments Extra time taken to determine max cristy stretch Neuro Re-Education Treatment Other Activities Isolated Kegel trng Details Supine & sitting: Quick & Long Hold Kegel while isolating from Gluteals. Reps/Duration 36' Comments See PF section for strength/ resting. Self-Care/Home Management Treatment Activities Self-Care/Home Management Activities I/S pt in HEP: Iliopsoas stretch in sup & 1/2 kneel. PT-OP-T Assessment and Plan Start: 01/31/24 13:11 Freq: Status: Active Protocol: Document 04/18/24 10:47 LRN (Rec: 04/18/24 12:02 LRN [id number]) Physical Therapy Assessment Goals 4 Impairment Low back and upper back pain rated 3/10. Short Term Goal (STG) Pt will be educated and demonstrate knowledge of proper body mechanics for childcare and improve standing posture. STG Duration 04/29/24 [employer] Goal (LTG) Decrease upper and lower back pain to no more than 1/10 with modifications to positioning. LTG Duration 06/24/24 3 Impairment Pain with intercourse Short Term Goal (STG) Pt will be educated and perform PF trP stretching for self care. STG Duration 04/29/24 Care Home Goal (LTG) Reduce PF pain to no pain with intercourse. LTG Duration 06/24/24 2 Impairment Stress Urinary Incontinence ( JOHN) w/sneeze & exercise. Short Term Goal (STG) Pt is not able to perform a PF contraction in the absence of abdominal/gluteal/hip AD muscles. 03/24/24: Pt able to perform a PF contraction in abscence of abdominal/gluteal assist. 04/18/24: Pt able to perform a PF contracion in absence of gluteal assist after training in sup & sit, not standing. STG Duration 04/29/24 progressed 03/24/24 (need hip AD assessed) Care Home Goal (LTG) Improve PF strength to 3/5 with no urinary leakage with physical activity (not to include jumping). LTG Duration 06/24/24 1 Impairment Lacks appropriate self care HEP Short Term Goal (STG) Pt will demonstrate knowledge of use of urge deference technique and be educated and able to demonstrate core pressure management with transfers. 03/07/24: Pt demonstrates knowledge of urge deference technique, but pt able to maintain continence without use of techniques. Initiated core pressure mgmt with transfers. 04/11/24: Educated & Issued: Handout for core pressure mgmt /Kegel with transfers. 04/18/24: Pt demonstrates knowledge of core pressure mgmt w/transfers, although pt reports not doing all the time , but trying to remember. STG Duration 04/29/24 (04/18/24: MET GOAL) Care Home Goal (LTG) Pt will be educated in a self care HEP of PF/ L hip (ER/ext) strengthening, and trunk AROM R rot & SB stretches. 04/18/24: /S pt in HEP: Iliopsoas stretch in sup & 1/2 kneel. LTG Duration 06/24/24 progressed 04/18/24 Assessment Summary Assessment Pt able to perform Iliopsoas stretch correctly in sup & 1/2 knee. L ilipsoas tighter than the R. Good log roll transfer, with breath. In standing, pt needed UE support to relax gluteals, PF is weaker than gluteals. Further HEP trunk stretch & hip strengthening. Physical Therapy Plan Frequency and Duration Frequency of Treatment 1x/Week Duration of treatment (weeks) 16 Plan of Care Start Date 02/29/24 Plan of Care End Date 06/24/24 Next Visit Focus/Plan Next Note Type Treatment Note Next Visit Plan Next: If needed, Issue handout for core pressure mgmt review (STG1)Issue HEP of PF/ L hip ( ER/ext) strengthening, and Trunk stretch (Flex, R SB & Rot).focusing on stable core. Neural Re-ed trng for Kegel in isolation of gluteals in stand when PF strength strong enough; continue sup/sit strengthening, & practice quick Kegel w/cough (assess for hip AD assist in sup & sit STG2). Ther Ex & HEP: Strengthening upper back and abdominals. Self care/educate: coordination of proper breaths with ADLs (STG4), body mechanics (baby care) (STG4) and exercise (general ex program to start). ? Manual therapy to stretch PF and issue wand for self stretch HEP. Educate in proper posture with awareness of her postural changes (lordosis) Monitor occasionially for improved Deep breathing & proper core pressure mgmt w/ transfers and activities. STM (as needed): Upper and lower back. POC: Pt education, Manual therapy. Biofeedback with vaginal sensor for PF >< awareness and strengthening, Therapeutic Exercises, Therapeutic Activities, Neuromuscular Reeducation, STM , Modalities (POOJA, KURT)
--- NOTE | 2024-04-25 19:39 | PT.OTN ---
Current Diagnoses Low back pain, unspecified (04/25/24) Pain in thoracic spine (04/25/24) Stress incontinence (female) (male) (04/25/24) Urge incontinence (04/25/24) Unspecified dyspareunia (04/25/24) Physical Therapy Treatment Note PT-OP-A Visit Information Start: 01/31/24 13:11 Freq: Status: Active Protocol: Document 04/25/24 10:45 LRN (Rec: 04/25/24 11:29 LRN [id number]) Out-Patient Physical Therapy Visit Information Visit Information Visit Type Treatment Note Visit Start Time 10:45 Visit Stop Time 11:23 Visit Number 10/16 Evaluation Information Evaluation Date 02/29/24 Precautions Precautions Post- (05/23/23), 1G1P. (note: stopped ). PT-OP-B Current Condition Start: 01/31/24 13:11 Freq: Status: Active Protocol: Document 02/29/24 11:39 LRN (Rec: 02/29/24 12:38 LRN [id number]) Current Condition History of Current Condition Onset Date 05/23/23 Current Complaints Urinary incontinenace. History of Current Condition 9 month , baby (baby 5#, 1 oz.) was delivered vaginally without tearing, with epidural, 4 wks early. She is still breast feeding, but only at night. Problems of constipation during is resolved. She reports urinary leakage occasionally with sneeze ( while sitting cross legged, of if not lissy before sneezing, and jumping jacks). She is currently on control (IUD good for a few years). 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 She reports pain with intercourse, jolt sometimes with initial first few insertions. Prior Treatments and Tests PT for urinary incontinence when 27 wks . Developmental History Developmental History Pt is a traveling OT, off work until next fall. She was seen at 27 weeks for stress urinary incontinence. She had had urinary leakage for 2-3 yrs prior to and was doing kegel ex's from the [employer]. During she had stress urinary leakage and constipation. Treatment Goals Patient/Caregiver Goals - Not to leak with physical activity. - no pain with intercourse. Personal Factors Other Personal Factors That May Effect History of urinary Therapy/Recovery incontinence 1-2 yrs prior to , pain with intercourse prior to , and urinary incontinecne after 27 wks of . PT-OP-C Subjective Start: 01/31/24 13:11 Freq: Status: Active Protocol: Document 04/25/24 10:45 LRN (Rec: 04/25/24 11:29 LRN [id number]) OP-PT Subjective Patient Comments Patient Comments Had one leakage this week with a sneeze. PT-OP-I Pelvic Floor Start: 01/31/24 13:11 Freq: Status: Active Protocol: Document 04/25/24 10:45 LRN (Rec: 04/25/24 11:29 LRN [id number]) Pelvic Floor Assessment Comments Pelvic Floor Comments Supine (bolster for legs, Gluteal to R of R Isch Tub): Resting: PF 2.4, Glut 1.3. Quick Contraction: PF 9.1, Glut 1.9 : Long Hold: PF 2.7 , Glut 2.6 Sit: Resting: PF 2.5, Glut 3 .9. Quick contraction: PF 12. 3, Glut 3.8. Quick w/Inhale PF 16.2, Glut 3.4; Quick w/ Exhale PF 17.1, Glut 3.5. Stand: Holding onto Platform: Quick contraction: PF 9.6, Gluteal 1.5. Long Hold: PF 10.5, Glut 1.0. PT-OP-J Posture/Palpation/Skin Start: 01/31/24 13:11 Freq: Status: Active Protocol: Document 02/29/24 11:39 LRN (Rec: 02/29/24 12:38 LRN [id number]) Posture Evaluation Position Standing Head/C-Spine Posture Forward Head L-Spine Posture Increased Lordosis,Shifted Left Pelvis Posture Anteriorly Tilted Weight Distribution Balanced PT-OP-K Range of Motion Start: 01/31/24 13:11 Freq: Status: Active Protocol: Document 02/29/24 11:39 LRN (Rec: 02/29/24 12:38 LRN [id number]) Lumbar Spine Range of Motion Lumbar Spine Active Degrees Testing Position Standing Flexion 90 Rotation Left 15 Rotation Right 10 Lateral Flexion Left 15 Lateral Flexion Right 10 Hip Goniometric Range of Motion Hip Right Passive Testing Position Supine Internal Rotation 30 External Rotation 90 Left Passive Internal Rotation 30 External Rotation 90 PT-OP-M Strength Start: 01/31/24 13:11 Freq: Status: Active Protocol: Document 02/29/24 11:39 LRN (Rec: 02/29/24 12:38 LRN [id number]) Trunk Strength Trunk Manual Muscle Testing Core Stabilization Loss of core stabiity with rotational stress applied Hip Strength Hip Manual Muscle Testing Right Comments Strength is 5/5. Hip extension caused LBP onset at ~L5-S1. Left External Rotation 3 Fair Comments Strength is 5/5 except as indicated above. PT-OP-Q Treatments Start: 01/31/24 13:11 Freq: Status: Active Protocol: Document 04/25/24 10:45 LRN (Rec: 04/25/24 11:29 LRN [id number]) Neuro Re-Education Treatment Other Activities Isolated Kegel trng Details Sitting: Quick & Long hold Reps/Duration 35' Comments See PF section for strength/ resting. Self-Care/Home Management Treatment Education Other Education Reviewed Core pressure mgmt with transfers and lifting ADL . Activities Self-Care/Home Management Activities Handout issued for Core pressure mgmt with transfers. PT-OP-T Assessment and Plan Start: 01/31/24 13:11 Freq: Status: Active Protocol: Document 04/25/24 10:45 LRN (Rec: 04/25/24 11:29 LRN [id number]) Physical Therapy Assessment Goals 4 Impairment Low back and upper back pain rated 3/10. Short Term Goal (STG) Pt will be educated and demonstrate knowledge of proper body mechanics for childcare and improve standing posture. STG Duration 04/29/24 Correction Goal (LTG) Decrease upper and lower back pain to no more than 1/10 with modifications to positioning. LTG Duration 06/24/24 3 Impairment Pain with intercourse Short Term Goal (STG) Pt will be educated and perform PF trP stretching for self care. STG Duration 04/29/24 Correction Goal (LTG) Reduce PF pain to no pain with intercourse. LTG Duration 06/24/24 2 Impairment Stress Urinary Incontinence ( JOHN) w/sneeze & exercise. Short Term Goal (STG) Pt is not able to perform a PF contraction in the absence of abdominal/gluteal/hip AD muscles. 03/24/24: Pt able to perform a PF contraction in abscence of abdominal/gluteal assist. 04/18/24: Pt able to perform a PF contracion in absence of gluteal assist after training in sup & sit, not standing. STG Duration 04/29/24 progressed 03/24/24 (need hip AD assessed) Mob[employer] Goal (LTG) Improve PF strength to 3/5 with no urinary leakage with physical activity (not to include jumping). LTG Duration 06/24/24 1 Impairment Lacks appropriate self care HEP Short Term Goal (STG) Pt will demonstrate knowledge of use of urge deference technique and be educated and able to demonstrate core pressure management with transfers. 03/07/24: Pt demonstrates knowledge of urge deference technique, but pt able to maintain continence without use of techniques. Initiated core pressure mgmt with transfers. 04/11/24: Educated & Issued: Handout for core pressure mgmt /Kegel with transfers. 04/18/24: Pt demonstrates knowledge of core pressure mgmt w/transfers, although pt reports not doing all the time , but trying to remember. 04/25/24: Re-issued. STG Duration 04/29/24 (04/18/24: MET GOAL) Correction Goal (LTG) Pt will be educated in a self care HEP of PF/ L hip (ER/ext) strengthening, and trunk AROM R rot & SB stretches. 04/18/24: /S pt in HEP: Iliopsoas stretch in sup & 1/2 kneel. LTG Duration 06/24/24 progressed 04/18/24 Assessment Summary Assessment 28 yo female w/JOHN & insertional dyspareunia, decr' d trunk AROM (R rot& SB), weak L hip ER & pain with R hip ext. Her deep breathing mechanics is more chest than abdominal. Today, pt able to hold stable PF contraction in supine & sitting. Standing PF Long Hold strength in standing has greatly improved but lacks consistency of hold; Quick Contractions are not as strong; therefore needs further strengthening of both. Physical Therapy Plan Frequency and Duration Frequency of Treatment 1x/Week Duration of treatment (weeks) 16 Plan of Care Start Date 02/29/24 Plan of Care End Date 06/24/24 Next Visit Focus/Plan Next Note Type Treatment Note Next Visit Plan Next: Issue HEP of PF/ L hip ( ER/ext) strengthening, and Trunk stretch (Flex, R SB & Rot).focusing on stable core. Neural Re-ed trng for Kegel in isolation of gluteals in stand when PF strength strong enough; continue sup/sit strengthening, & practice quick Kegel w/cough (assess for hip AD assist in sup & sit STG2). Ther Ex & HEP: Strengthening upper back and abdominals. Self care/educate: coordination of proper breaths with ADLs (STG4), body mechanics (baby care) (STG4) and exercise (general ex program to start). ? Manual therapy to stretch PF and issue wand for self stretch HEP. Educate in proper posture with awareness of her postural changes (lordosis) Monitor occasionially for improved Deep breathing & proper core pressure mgmt w/ transfers and activities. STM (as needed): Upper and lower back. POC: Pt education, Manual therapy. Biofeedback with vaginal sensor for PF >< awareness and strengthening, Therapeutic Exercises, Therapeutic Activities, Neuromuscular Reeducation, STM , Modalities (IFES, MH)
--- NOTE | 2024-05-12 16:47 | PT.OTN ---
Current Diagnoses Low back pain, unspecified (05/09/24) Pain in thoracic spine (05/09/24) Stress incontinence (female) (male) (05/09/24) Urge incontinence (05/09/24) Unspecified dyspareunia (05/09/24) Physical Therapy Treatment Note PT-OP-A Visit Information Start: 01/31/24 13:11 Freq: Status: Active Protocol: Document 05/09/24 10:45 LRN (Rec: 05/09/24 11:38 LRN [id number]) Out-Patient Physical Therapy Visit Information Visit Information Visit Type Treatment Note Visit Note Colonoscopy TH. Visit Start Time 10:45 Visit Stop Time 11:37 Visit Number 11/16 Evaluation Information Evaluation Date 02/29/24 Precautions Precautions Post- (05/23/23), 1G1P. (note: stopped ). PT-OP-B Current Condition Start: 01/31/24 13:11 Freq: Status: Active Protocol: Document 02/29/24 11:39 LRN (Rec: 02/29/24 12:38 LRN [id number]) Current Condition History of Current Condition Onset Date 05/23/23 Current Complaints Urinary incontinenace. History of Current Condition 9 month , baby (baby 5#, 1 oz.) was delivered vaginally without tearing, with epidural, 4 wks early. She is still breast feeding, but only at night. Problems of constipation during is resolved. She reports urinary leakage occasionally with sneeze ( while sitting cross legged, of if not lissy before sneezing, and jumping jacks). She is currently on control (IUD good for a few years). 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 She reports pain with intercourse, jolt sometimes with initial first few insertions. Prior Treatments and Tests PT for urinary incontinence when 27 wks . Developmental History Developmental History Pt is a traveling OT, off work until next fall. She was seen at 27 weeks for stress urinary incontinence. She had had urinary leakage for 2-3 yrs prior to and was doing kegel ex's from the [employer]. During she had stress urinary leakage and constipation. Treatment Goals Patient/Caregiver Goals - Not to leak with physical activity. - no pain with intercourse. Personal Factors Other Personal Factors That May Effect History of urinary Therapy/Recovery incontinence 1-2 yrs prior to , pain with intercourse prior to , and urinary incontinecne after 27 wks of . PT-OP-C Subjective Start: 01/31/24 13:11 Freq: Status: Active Protocol: Document 05/09/24 10:45 LRN (Rec: 05/09/24 11:38 LRN [id number]) OP-PT Subjective Patient Comments Patient Comments Has leaked only 1x in 2 wks. Leaked with sneezing. No pain with intercourse. PT-OP-I Pelvic Floor Start: 01/31/24 13:11 Freq: Status: Active Protocol: Document 04/25/24 10:45 LRN (Rec: 04/25/24 11:29 LRN [id number]) Pelvic Floor Assessment Comments Pelvic Floor Comments Supine (bolster for legs, Gluteal to R of R Isch Tub): Resting: PF 2.4, Glut 1.3. Quick Contraction: PF 9.1, Glut 1.9 : Long Hold: PF 2.7 , Glut 2.6 Sit: Resting: PF 2.5, Glut 3 .9. Quick contraction: PF 12. 3, Glut 3.8. Quick w/Inhale PF 16.2, Glut 3.4; Quick w/ Exhale PF 17.1, Glut 3.5. Stand: Holding onto Platform: Quick contraction: PF 9.6, Gluteal 1.5. Long Hold: PF 10.5, Glut 1.0. PT-OP-J Posture/Palpation/Skin Start: 01/31/24 13:11 Freq: Status: Active Protocol: Document 02/29/24 11:39 LRN (Rec: 02/29/24 12:38 LRN [id number]) Posture Evaluation Position Standing Head/C-Spine Posture Forward Head L-Spine Posture Increased Lordosis,Shifted Left Pelvis Posture Anteriorly Tilted Weight Distribution Balanced PT-OP-K Range of Motion Start: 01/31/24 13:11 Freq: Status: Active Protocol: Document 02/29/24 11:39 LRN (Rec: 02/29/24 12:38 LRN [id number]) Lumbar Spine Range of Motion Lumbar Spine Active Degrees Testing Position Standing Flexion 90 Rotation Left 15 Rotation Right 10 Lateral Flexion Left 15 Lateral Flexion Right 10 Hip Goniometric Range of Motion Hip Right Passive Testing Position Supine Internal Rotation 30 External Rotation 90 Left Passive Internal Rotation 30 External Rotation 90 PT-OP-M Strength Start: 01/31/24 13:11 Freq: Status: Active Protocol: Document 02/29/24 11:39 LRN (Rec: 02/29/24 12:38 LRN [id number]) Trunk Strength Trunk Manual Muscle Testing Core Stabilization Loss of core stabiity with rotational stress applied Hip Strength Hip Manual Muscle Testing Right Comments Strength is 5/5. Hip extension caused LBP onset at ~L5-S1. Left External Rotation 3 Fair Comments Strength is 5/5 except as indicated above. PT-OP-Q Treatments Start: 01/31/24 13:11 Freq: Status: Active Protocol: Document 05/09/24 10:45 LRN (Rec: 05/09/24 11:38 LRN [id number]) Therapeutic Exercises Sidelying Exercises Clamshell Sidelying Exercise Name L>R Side bilateral Reps/Minutes 3x 10 L, 1x10 R Comments Cued for TA tight. Sitting Exercises Hip ER Sitting Exercise Name Strengthening (lifting of foot inward) Side left Reps/Minutes 10x Standing Exercises Trunk R rot Side right Reps/Minutes 5 SH x 5 Trunk R SB stretch Standing Exercise Name R>L Side right Reps/Minutes 10 SH x 5 each FB trunk flex Standing Exercise Name FB and from hanging onto sink. Reps/Minutes 5-10 SH x 5 Comments Cued in LB area for stretch Other Exercises Transfer training w/Kegel/breath Other Exercise Name see therapeutic activity below . TBall Trunk flex stretch Other Exercise Name Rolling onto stomach for L/S stretch Equipment Used Green TBall Reps/Minutes 3' Therapeutic Activity Therapeutic Activity Transfer trng w/Kegel/breath Reps/Minutes 14' Comments Extra time with training and coordinating. Self-Care/Home Management Treatment Education Other Education Discussed diet to decr onset of constipation Activities Self-Care/Home Management Activities HEP: Issued & reviewed HEP: Back sink stretch, child's pose, Hip ER sitting TB BKFO & sidelie clamshell. PT-OP-T Assessment and Plan Start: 01/31/24 13:11 Freq: Status: Active Protocol: Document 05/09/24 10:45 LRN (Rec: 05/09/24 11:38 LRN [id number]) Physical Therapy Assessment Goals 4 Impairment Low back and upper back pain rated 3/10. Short Term Goal (STG) Pt will be educated and demonstrate knowledge of proper body mechanics for childcare and improve standing posture. STG Duration 04/29/24 Room Worker Goal (LTG) Decrease upper and lower back pain to no more than 1/10 with modifications to positioning. LTG Duration 06/24/24 3 Impairment Pain with intercourse Short Term Goal (STG) Pt will be educated and perform PF trP stretching for self care. STG Duration 04/29/24 Room Worker Goal (LTG) Reduce PF pain to no pain with intercourse. 05/09/24: No pain with intercourse. LTG Duration 06/24/24 (05/09/24: MET GOAL) 2 Impairment Stress Urinary Incontinence ( JOHN) w/sneeze & exercise. Short Term Goal (STG) Pt is not able to perform a PF contraction in the absence of abdominal/gluteal/hip AD muscles. 03/24/24: Pt able to perform a PF contraction in abscence of abdominal/gluteal assist. 04/18/24: Pt able to perform a PF contracion in absence of gluteal assist after training in sup & sit, not standing. STG Duration 04/29/24 progressed 03/24/24 (need hip AD assessed) Room Worker Goal (LTG) Improve PF strength to 3/5 with no urinary leakage with physical activity (not to include jumping). LTG Duration 06/24/24 1 Impairment Lacks appropriate self care HEP Short Term Goal (STG) Pt will demonstrate knowledge of use of urge deference technique and be educated and able to demonstrate core pressure management with transfers. 03/07/24: Pt demonstrates knowledge of urge deference technique, but pt able to maintain continence without use of techniques. Initiated core pressure mgmt with transfers. 04/11/24: Educated & Issued: Handout for core pressure mgmt /Kegel with transfers. 04/18/24: Pt demonstrates knowledge of core pressure mgmt w/transfers, although pt reports not doing all the time , but trying to remember. 04/25/24: Re-issued. STG Duration 04/29/24 (04/18/24: MET GOAL) Room Worker Goal (LTG) Pt will be educated in a self care HEP of PF/ L hip (ER/ext) strengthening, and trunk AROM R rot & SB stretches. 04/18/24: /S pt in HEP: Iliopsoas stretch in sup & 1/2 kneel. LTG Duration 06/24/24 progressed 04/18/24 Assessment Summary Assessment 28 yo female w/JOHN & insertional dyspareunia, decr' d trunk AROM (R rot& SB), weak L hip ER & pain with R hip ext. Today pt demonstrates need to decrease lumbar lordosis due to tight trunk extensor and QL, most stretch felt with child's pose. Weakness of L hip ER. Physical Therapy Plan Frequency and Duration Frequency of Treatment 1x/Week Duration of treatment (weeks) 16 Plan of Care Start Date 02/29/24 Plan of Care End Date 06/24/24 Next Visit Focus/Plan Next Note Type Progress Note Next Visit Plan Next: Review HEP L hip ER strengthening and Trunk stretch Flex, R SB & Rot, and issue trunk R SB & rot), focus on stable core. Neural Re-ed trng for Kegel in isolation of gluteals in stand when PF strength strong enough; continue sup/sit strengthening , & practice quick Kegel w/ cough (assess for hip AD assist in sup & sit STG2). Ther Ex & HEP: Strengthening upper back and abdominals. Self care/educate: coordination of proper breaths with ADLs (STG4), body mechanics (baby care) (STG4) and exercise (general ex program to start). ? Manual therapy to stretch PF and issue wand for self stretch HEP. Educate in proper posture with awareness of her postural changes (lordosis) Monitor occasionially for improved Deep breathing & proper core pressure mgmt w/ transfers and activities. STM (as needed): Upper and lower back. POC: Pt education, Manual therapy. Biofeedback with vaginal sensor for PF >< awareness and strengthening, Therapeutic Exercises, Therapeutic Activities, Neuromuscular Reeducation, STM , Modalities (IFES, MH)
--- NOTE | 2024-05-16 17:41 | PT.OTN ---
Current Diagnoses Low back pain, unspecified (05/16/24) Pain in thoracic spine (05/16/24) Stress incontinence (female) (male) (05/16/24) Urge incontinence (05/16/24) Unspecified dyspareunia (05/16/24) Physical Therapy Treatment Note PT-OP-A Visit Information Start: 01/31/24 13:11 Freq: Status: Active Protocol: Document 05/16/24 10:55 LRN (Rec: 05/16/24 11:41 LRN Laptop) Out-Patient Physical Therapy Visit Information Visit Information Visit Type Progress Note Visit Note Insurance staying the same. Visit Start Time 10:56 Visit Stop Time 11:40 Visit Number 12/16 Evaluation Information Evaluation Date 02/29/24 Precautions Precautions Post- (05/23/23), 1G1P. (note: stopped ). PT-OP-B Current Condition Start: 01/31/24 13:11 Freq: Status: Active Protocol: Document 02/29/24 11:39 LRN (Rec: 02/29/24 12:38 LRN [id number]) Current Condition History of Current Condition Onset Date 05/23/23 Current Complaints Urinary incontinenace. History of Current Condition 9 month , baby (baby 5#, 1 oz.) was delivered vaginally without tearing, with epidural, 4 wks early. She is still breast feeding, but only at night. Problems of constipation during is resolved. She reports urinary leakage occasionally with sneeze ( while sitting cross legged, of if not lissy before sneezing, and jumping jacks). She is currently on control (IUD good for a few years). 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 She reports pain with intercourse, jolt sometimes with initial first few insertions. Prior Treatments and Tests PT for urinary incontinence when 27 wks . Developmental History Developmental History Pt is a traveling OT, off work until next fall. She was seen at 27 weeks for stress urinary incontinence. She had had urinary leakage for 2-3 yrs prior to and was doing kegel ex's from the [employer]. During she had stress urinary leakage and constipation. Treatment Goals Patient/Caregiver Goals - Not to leak with physical activity. - no pain with intercourse. Personal Factors Other Personal Factors That May Effect History of urinary Therapy/Recovery incontinence 1-2 yrs prior to , pain with intercourse prior to , and urinary incontinecne after 27 wks of . PT-OP-C Subjective Start: 01/31/24 13:11 Freq: Status: Active Protocol: Document 05/16/24 10:55 LRN (Rec: 05/16/24 11:41 LRN Laptop) OP-PT Subjective Patient Comments Patient Comments States she forgot her probe today. Patient Questionnaires Pelvic Pain and Urgency/Frequency Patient Symptom Scale Pelvic Pain Score 6 OP-PT Pain Assessment Pain Assessment Grid Paper Pain Assessment Grid Completed Yes Location Low back Pain Location Details Lower back, sacral region Intensity 2 Scale Used Numeric (0 - 10) Upper back Pain Location Details Upper intrascapular region. Intensity 2 Scale Used Numeric (0 - 10) PT-OP-I Pelvic Floor Start: 01/31/24 13:11 Freq: Status: Active Protocol: Document 04/25/24 10:45 LRN (Rec: 04/25/24 11:29 LRN [id number]) Pelvic Floor Assessment Comments Pelvic Floor Comments Supine (bolster for legs, Gluteal to R of R Isch Tub): Resting: PF 2.4, Glut 1.3. Quick Contraction: PF 9.1, Glut 1.9 : Long Hold: PF 2.7 , Glut 2.6 Sit: Resting: PF 2.5, Glut 3 .9. Quick contraction: PF 12. 3, Glut 3.8. Quick w/Inhale PF 16.2, Glut 3.4; Quick w/ Exhale PF 17.1, Glut 3.5. Stand: Holding onto Platform: Quick contraction: PF 9.6, Gluteal 1.5. Long Hold: PF 10.5, Glut 1.0. PT-OP-J Posture/Palpation/Skin Start: 01/31/24 13:11 Freq: Status: Active Protocol: Document 02/29/24 11:39 LRN (Rec: 02/29/24 12:38 LRN [id number]) Posture Evaluation Position Standing Head/C-Spine Posture Forward Head L-Spine Posture Increased Lordosis,Shifted Left Pelvis Posture Anteriorly Tilted Weight Distribution Balanced PT-OP-K Range of Motion Start: 01/31/24 13:11 Freq: Status: Active Protocol: Document 02/29/24 11:39 LRN (Rec: 02/29/24 12:38 LRN [id number]) Lumbar Spine Range of Motion Lumbar Spine Active Degrees Testing Position Standing Flexion 90 Rotation Left 15 Rotation Right 10 Lateral Flexion Left 15 Lateral Flexion Right 10 Hip Goniometric Range of Motion Hip Right Passive Testing Position Supine Internal Rotation 30 External Rotation 90 Left Passive Internal Rotation 30 External Rotation 90 PT-OP-M Strength Start: 01/31/24 13:11 Freq: Status: Active Protocol: Document 02/29/24 11:39 LRN (Rec: 02/29/24 12:38 LRN [id number]) Trunk Strength Trunk Manual Muscle Testing Core Stabilization Loss of core stabiity with rotational stress applied Hip Strength Hip Manual Muscle Testing Right Comments Strength is 5/5. Hip extension caused LBP onset at ~L5-S1. Left External Rotation 3 Fair Comments Strength is 5/5 except as indicated above. PT-OP-Q Treatments Start: 01/31/24 13:11 Freq: Status: Active Protocol: Document 05/16/24 10:55 LRN (Rec: 05/16/24 11:41 LRN Laptop) Therapeutic Exercises Supine Exercises Kegel in isolation Supine Exercise Name Kegel in isolation of substitute ms (abdom, hip AD, gluteals) Side bilateral Reps/Minutes 2' Comments Pt able to perform Kegel in isolation of substitute ms. Iliopsoas stretch Supine Exercise Name Verbal review of issued HEP Reps/Minutes 1' Sitting Exercises BKFO w/TB Reps/Minutes 15x 2 Trunk rot stretch Side right Reps/Minutes 25 SH x 3 Hip ER Sitting Exercise Name Strengthening (lifting of foot inward) Side left Reps/Minutes 3 SH x 15 Standing Exercises Iliopsoas stretch Side bilateral Reps/Minutes 5' Trunk R rot Side right Reps/Minutes 10-20 SH x 2 Trunk R SB stretch Side right Reps/Minutes 20 SH x 2 each FB trunk flex Standing Exercise Name FB and from hanging onto sink. Reps/Minutes 5-10 SH x 5 Comments Cued in LB area for stretch Other Exercises Child's Pose Other Exercise Name Knees together Reps/Minutes 10-30 SH x 2 Therapeutic Activity Therapeutic Activity Body Mechanics Name Proper Lifting baby in carrier and holding baby, ADLs Reps/Minutes 17' Comments Discussion of holding baby in front or in backpack carrier to limit side holding of baby on hips. Self-Care/Home Management Treatment Activities Self-Care/Home Management Activities Issued Handouts: Proper body mechanics for lifting and holding baby, for ADLs, and Posture & Body Mechanics. Issued & reviewed Handout: Postural changes with Issued & reviewed HEP: Iliopsoas stretch in standing and supine. PT-OP-T Assessment and Plan Start: 01/31/24 13:11 Freq: Status: Active Protocol: Document 05/16/24 10:55 LRN (Rec: 05/16/24 11:41 LRN Laptop) Physical Therapy Assessment Rehab Potential Rehabilitation Potential Good Evaluation Complexity Number of Personal Factors/Comorbidities 1-2 Number of Body Systems Impaired 4 or More Clinical Presentation at Evaluation Evolving Impairments Impairments Activity Tolerance,Pain, Posture,ROM,Soft Tissue Mobility,Strength Goals 4 Impairment Low back and upper back pain rated 3/10. Short Term Goal (STG) Pt will be educated and demonstrate knowledge of proper body mechanics for childcare and improve standing posture. 05/16/24: Educated pt in proper body mechanics for lifting and holding baby, for ADLs, and Posture & Body Mechanics. STG Duration 04/29/24 (05/16/24: MET GOAL) Residential Goal (LTG) Decrease upper and lower back pain to no more than 1/10 with modifications to positioning. 05/16/24: Upper and lower back pain rated 2/10. LTG Duration 06/24/24 progressing 3 Impairment Pain with intercourse Short Term Goal (STG) Reduce PF pain to no pain with intercourse. 05/09/24: No pain with intercourse. STG Duration (05/09/24: MET GOAL) Residential Goal (LTG) Pt will be educated and perform PF trP stretching for self care. 05/16/24: Pain resolved with intercouse 05/09/24. LTG Duration 06/24/24 2 Impairment Stress Urinary Incontinence ( JOHN) w/sneeze & exercise. Short Term Goal (STG) Pt is not able to perform a PF contraction in the absence of abdominal/gluteal/hip AD muscles. 03/24/24: Pt able to perform a PF contraction in absence of abdominal/gluteal assist. 04/18/24: Pt able to perform a PF contracion in absence of gluteal assist after training in sup & sit, not standing. 05/16/24: Pt able to perform a PF contraction in absence of hip AD ms. STG Duration 04/29/24 (05/16/24: MET GOAL ) Residential Goal (LTG) Improve PF strength to 3/5 with no urinary leakage with physical activity (not to include jumping). 05/16/24: Doing yoga and pelaton cycling and circuit training, hiking walking w/o leaking. Leaking occasionally with sneezes. LTG Duration 06/24/24 progressing (leaks with sneezing). 1 Impairment Lacks appropriate self care HEP Short Term Goal (STG) Pt will demonstrate knowledge of use of urge deference technique and be educated and able to demonstrate core pressure management with transfers. 03/07/24: Pt demonstrates knowledge of urge deference technique, but pt able to maintain continence without use of techniques. Initiated core pressure mgmt with transfers. 04/11/24: Educated & Issued: Handout for core pressure mgmt /Kegel with transfers. 04/18/24: Pt demonstrates knowledge of core pressure mgmt w/transfers, although pt reports not doing all the time , but trying to remember. 04/25/24: Re-issued. STG Duration 04/29/24 (04/18/24: MET GOAL) Enterprise Applications Manager Goal (LTG) Pt will be educated in a self care HEP of PF/ L hip (ER/ext) strengthening, and trunk AROM R rot & SB stretches. 02/29/24: (late entry) HEP: Kegels quick & long hold. 04/18/24: Instructed pt in HEP: Iliopsoas stretch in sup & 1/2 kneel. 05/09/24: (late entry) HEP: Back sink stretch, child's pose, Hip ER strengthening in sitting TB BKFO & sidelie clamshell. 05/16/24: HEP: Iliopsoas stretch in standing and supine . LTG Duration 06/24/24 progressed 05/16/24 (need hip ext strength, ? handout-trunk AROM) Assessment Summary Assessment 28 yo female w/JOHN with occasional sneeze, resolved insertional dyspareunia ( initially internal tenderness) , decr'd trunk AROM (R rot& SB ), weak L hip ER & weak/ painful R hip ext. Today, pt shows symptom improvement per PUF score initially 13, now 6. Her back pain is decreasing, she has occasional leakage with sneezing, and her her dyspareunia has resolved, although internal assessment was not performed today to identify if active trigger points exist. At last check she did not have any active trigger points. The pt will benefit from continues skilled physical therapy to work towards urinary continence ( with sneeze), no active trP in PF and completion of her HEP addressing areas of mobility/ strength deficits. Physical Therapy Plan Frequency and Duration Frequency of Treatment 1x/Week Duration of treatment (weeks) 16 Plan of Care Start Date 02/29/24 Plan of Care End Date 06/24/24 Therapeutic Interventions Therapeutic Interventions Home Exercise Program,Joint Mobilizations,Manual Therapy, Neuromuscular Re-education, Self-Care/Home Management,Soft Tissue Mobilization,Taping, Therapeutic Activities, Therapeutic Exercises Modalities Biofeedback,Cold Pack/Ice Massage Next Visit Focus/Plan Next Note Type Treatment Note Next Visit Plan Next: Review HEP L hip ER strengthening (check for hip ext causing LBP & strength), issue trunk R SB & rot ( remeasure in 2 wks - Trunk stretch Flex, R SB & Rot), focus on stable core and PF mobility/strength to eliminate leakage with sneeze ( aggrevator training). Neural Re-ed trng for Kegel with sneeze and isolation of strengthening with strength in standing when strong enough; continue sup/sit strengthening , & practice quick Kegel w/ sneeze or cough. Ther Ex & HEP: Strengthening upper back and abdominals. Issue wand for PF self stretch HEP if trPs present. If back pain, STM (as needed): Upper and lower back. Monitor occasionially for improved Deep breathing & proper core pressure mgmt w/ transfers and activities. POC: Pt education, Manual therapy. Biofeedback with vaginal sensor for PF >< awareness and strengthening, Therapeutic Exercises, Therapeutic Activities, Neuromuscular Reeducation, STM , Modalities (IFES, )
--- NOTE | 2024-06-06 17:15 | PT.OTN ---
Current Diagnoses Low back pain, unspecified (06/06/24) Pain in thoracic spine (06/06/24) Stress incontinence (female) (male) (06/06/24) Urge incontinence (06/06/24) Unspecified dyspareunia (06/06/24) Physical Therapy Treatment Note PT-OP-A Visit Information Start: 01/31/24 13:11 Freq: Status: Active Protocol: Document 06/06/24 11:37 LRN (Rec: 06/06/24 12:34 LRN Laptop) Out-Patient Physical Therapy Visit Information Visit Information Visit Type Treatment Note Visit Start Time 11:37 Visit Stop Time 12:19 Visit Number 01/16 Evaluation Information Evaluation Date 02/29/24 Precautions Precautions Post- (05/23/23), 1G1P. (note: stopped ). PT-OP-B Current Condition Start: 01/31/24 13:11 Freq: Status: Active Protocol: Document 02/29/24 11:39 LRN (Rec: 02/29/24 12:38 LRN [id number]) Current Condition History of Current Condition Onset Date 05/23/23 Current Complaints Urinary incontinenace. History of Current Condition 9 month , baby (baby 5#, 1 oz.) was delivered vaginally without tearing, with epidural, 4 wks early. She is still breast feeding, but only at night. Problems of constipation during is resolved. She reports urinary leakage occasionally with sneeze ( while sitting cross legged, of if not lissy before sneezing, and jumping jacks). She is currently on control (IUD good for a few years). 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 She reports pain with intercourse, jolt sometimes with initial first few insertions. Prior Treatments and Tests PT for urinary incontinence when 27 wks . Developmental History Developmental History Pt is a traveling OT, off work until next fall. She was seen at 27 weeks for stress urinary incontinence. She had had urinary leakage for 2-3 yrs prior to and was doing kegel ex's from the [employer]. During she had stress urinary leakage and constipation. Treatment Goals Patient/Caregiver Goals - Not to leak with physical activity. - no pain with intercourse. Personal Factors Other Personal Factors That May Effect History of urinary Therapy/Recovery incontinence 1-2 yrs prior to , pain with intercourse prior to , and urinary incontinecne after 27 wks of . PT-OP-C Subjective Start: 01/31/24 13:11 Freq: Status: Active Protocol: Document 06/06/24 11:37 LRN (Rec: 06/06/24 12:34 LRN Laptop) OP-PT Subjective Patient Comments Patient Comments No issues with stress incontinence. PT-OP-I Pelvic Floor Start: 01/31/24 13:11 Freq: Status: Active Protocol: Document 04/25/24 10:45 LRN (Rec: 04/25/24 11:29 LRN [id number]) Pelvic Floor Assessment Comments Pelvic Floor Comments Supine (bolster for legs, Gluteal to R of R Isch Tub): Resting: PF 2.4, Glut 1.3. Quick Contraction: PF 9.1, Glut 1.9 : Long Hold: PF 2.7 , Glut 2.6 Sit: Resting: PF 2.5, Glut 3 .9. Quick contraction: PF 12. 3, Glut 3.8. Quick w/Inhale PF 16.2, Glut 3.4; Quick w/ Exhale PF 17.1, Glut 3.5. Stand: Holding onto Platform: Quick contraction: PF 9.6, Gluteal 1.5. Long Hold: PF 10.5, Glut 1.0. PT-OP-J Posture/Palpation/Skin Start: 01/31/24 13:11 Freq: Status: Active Protocol: Document 02/29/24 11:39 LRN (Rec: 02/29/24 12:38 LRN [id number]) Posture Evaluation Position Standing Head/C-Spine Posture Forward Head L-Spine Posture Increased Lordosis,Shifted Left Pelvis Posture Anteriorly Tilted Weight Distribution Balanced PT-OP-K Range of Motion Start: 01/31/24 13:11 Freq: Status: Active Protocol: Document 06/06/24 11:37 LRN (Rec: 06/06/24 12:34 LRN Laptop) Lumbar Spine Range of Motion Lumbar Spine Active Degrees Rotation Left 45 Rotation Right 50 Lateral Flexion Left 18 Lateral Flexion Right 20 Hip Goniometric Range of Motion Hip Right Passive Testing Position Supine Internal Rotation 30 External Rotation 90 Left Passive Testing Position Supine Internal Rotation 35 External Rotation 90 PT-OP-M Strength Start: 01/31/24 13:11 Freq: Status: Active Protocol: Document 02/29/24 11:39 LRN (Rec: 02/29/24 12:38 LRN [id number]) Trunk Strength Trunk Manual Muscle Testing Core Stabilization Loss of core stabiity with rotational stress applied Hip Strength Hip Manual Muscle Testing Right Comments Strength is 5/5. Hip extension caused LBP onset at ~L5-S1. Left External Rotation 3 Fair Comments Strength is 5/5 except as indicated above. PT-OP-Q Treatments Start: 01/31/24 13:11 Freq: Status: Active Protocol: Document 06/06/24 11:37 LRN (Rec: 06/06/24 12:34 LRN Laptop) Therapeutic Exercises Supine Exercises Piriformis stretch Side bilateral Reps/Minutes 60 SH x 1 Comments Hip ER/IR PROM taken [facility] Supine Exercise Name SKTC before & after Pelvic L rotation ex's. Reps/Minutes 5 SH x 3 each. Comments Pt having anterior hip flexion impingement. Milad L pelvic rot Supine Exercise Name Rodo hand knee push f/b R Hand/ L knee push, Reps/Minutes 7' Ilipsoas stretch Supine Exercise Name Leg over plinth edge Side bilateral Reps/Minutes 1' each Comments No LBP Prone Exercises Hip Ext Prone Exercise Name Hip ext before & after milad pelvic ex & w/TA tighteningic L rot Side bilateral Reps/Minutes 10x 3 Comments Pain R SIJ with Rodo hip ext; no pain w/L hip ext after pelvic/TA ex Sidelying Exercises Clamshell Sidelying Exercise Name L Clamshell Side left Reps/Minutes 10x Standing Exercises Trunk R rot Side right Reps/Minutes 10-20 SH x 3 Comments ROM taken Trunk R SB stretch Side bilateral Reps/Minutes 20 SH x 2, 20SH R side only x 1 Comments ROM taken Other Exercises Child's Pose Other Exercise Name Knees together Reps/Minutes 30 SH x 3 Manual Therapy Treatment Consent Patient gave verbal consent for manual Yes treatment Soft Tissue Mobilization Sacral balancing Body Location Sacral balance Mobilization Type Sustained Pressure Intensity/Depth Moderate Body Position Prone Comments PA R FRANCESCA and Sacral sulcus. PT-OP-T Assessment and Plan Start: 01/31/24 13:11 Freq: Status: Active Protocol: Document 06/06/24 11:37 LRN (Rec: 06/06/24 12:34 LRN Laptop) Physical Therapy Assessment Goals 4 Impairment Low back and upper back pain rated 3/10. Short Term Goal (STG) Pt will be educated and demonstrate knowledge of proper body mechanics for childcare and improve standing posture. 05/16/24: Educated pt in proper body mechanics for lifting and holding baby, for ADLs, and Posture & Body Mechanics. STG Duration 04/29/24 (05/16/24: MET GOAL) Freelance Web Designer Goal (LTG) Decrease upper and lower back pain to no more than 1/10 with modifications to positioning. 05/16/24: Upper and lower back pain rated 2/10. LTG Duration 06/24/24 progressing 3 Impairment Pain with intercourse Short Term Goal (STG) Reduce PF pain to no pain with intercourse. 05/09/24: No pain with intercourse. STG Duration (05/09/24: MET GOAL) Freelance Web Designer Goal (LTG) Pt will be educated and perform PF trP stretching for self care. 05/16/24: Pain resolved with intercouse 05/09/24. LTG Duration 06/24/24 2 Impairment Stress Urinary Incontinence ( JOHN) w/sneeze & exercise. Short Term Goal (STG) Pt is not able to perform a PF contraction in the absence of abdominal/gluteal/hip AD muscles. 03/24/24: Pt able to perform a PF contraction in absence of abdominal/gluteal assist. 04/18/24: Pt able to perform a PF contracion in absence of gluteal assist after training in sup & sit, not standing. 05/16/24: Pt able to perform a PF contraction in absence of hip AD ms. STG Duration 04/29/24 (05/16/24: MET GOAL ) Freelance Web Designer Goal (LTG) Improve PF strength to 3/5 with no urinary leakage with physical activity (not to include jumping). 05/16/24: Doing yoga and pelaton cycling and circuit training, hiking walking w/o leaking. Leaking occasionally with sneezes. LTG Duration 06/24/24 progressing (leaks with sneezing). 1 Impairment Lacks appropriate self care HEP Short Term Goal (STG) Pt will demonstrate knowledge of use of urge deference technique and be educated and able to demonstrate core pressure management with transfers. 03/07/24: Pt demonstrates knowledge of urge deference technique, but pt able to maintain continence without use of techniques. Initiated core pressure mgmt with transfers. 04/11/24: Educated & Issued: Handout for core pressure mgmt /Kegel with transfers. 04/18/24: Pt demonstrates knowledge of core pressure mgmt w/transfers, although pt reports not doing all the time , but trying to remember. 04/25/24: Re-issued. STG Duration 04/29/24 (04/18/24: MET GOAL) Freelance Web Designer Goal (LTG) Pt will be educated in a self care HEP of PF/ L hip (ER/ext) strengthening, and trunk AROM R rot & SB stretches. 02/29/24: (late entry) HEP: Kegels quick & long hold. 04/18/24: Instructed pt in HEP: Iliopsoas stretch in sup & 1/2 kneel. 05/09/24: (late entry) HEP: Back sink stretch, child's pose, Hip ER strengthening in sitting TB BKFO & sidelie clamshell. 05/16/24: HEP: Iliopsoas stretch in standing and supine . LTG Duration 06/24/24 progressed 05/16/24 (need hip ext strength, ? handout-trunk AROM) Assessment Summary Assessment 28 yo female w/JOHN with occasional sneeze, (resolved insertional dyspareunia, initially internal tenderness) , decr'd trunk AROM (R rot& SB ), weak L hip ER & weak/ painful R hip ext. L hip Ext caused excessive R pelvic rot and onset R SIJ pain, also R SIJ pain with resisted R hip Ext. Hip Ext is 5/5 bilaterally. No R SIJ pain after pelvic L rot strengthening and also after L clamshell strengthening. Physical Therapy Plan Frequency and Duration Frequency of Treatment 1x/Week Duration of treatment (weeks) 16 Plan of Care Start Date 02/29/24 Plan of Care End Date 06/24/24 Next Visit Focus/Plan Next Note Type Progress Note Next Visit Plan Next: PN and new POC if needed . Pain questionnaire (UB/LB), recheck again trunk R SB & rot (for need of HEP Trunk Flex, R SB & Rot stretch), & Check PF trp's & strength for leakage (issue wand for PF self stretch & HEP if trPs present), and check if sneezing causing leakage (do aggrevator training). Neural Re-ed trng for Kegel with sneeze and isolation of strengthening with strength in standing when strong enough; continue sup/sit strengthening , & practice quick Kegel w/ sneeze or cough. Ther Ex & HEP: Core/L pelvic rot strengthening and stretch/ relax R gluts (to eliminate R SIJ pain with hip ext). ?Strengthening upper back and abdominals. Monitor occasionally for improved Deep breathing & proper core pressure mgmt w/ transfers and activities. POC: Pt education, Manual therapy. Biofeedback with vaginal sensor for PF >< awareness and strengthening, Therapeutic Exercises, Therapeutic Activities, Neuromuscular Reeducation, STM , Modalities (IFES, KURT)
--- NOTE | 2024-06-20 18:19 | PT.OTN ---
Current Diagnoses Low back pain, unspecified (06/20/24) Pain in thoracic spine (06/20/24) Stress incontinence (female) (male) (06/20/24) Urge incontinence (06/20/24) Unspecified dyspareunia (06/20/24) Physical Therapy Treatment Note PT-OP-A Visit Information Start: 01/31/24 13:11 Freq: Status: Active Protocol: Document 06/20/24 13:01 LRN (Rec: 06/20/24 13:50 LRN Laptop) Out-Patient Physical Therapy Visit Information Visit Information Visit Type Progress Note Visit Start Time 13:01 Visit Stop Time 13:49 Visit Number 02/15 Evaluation Information Evaluation Date 02/29/24 Precautions Precautions Post- (05/23/23), 1G1P. (note: stopped ). PT-OP-B Current Condition Start: 01/31/24 13:11 Freq: Status: Active Protocol: Document 02/29/24 11:39 LRN (Rec: 02/29/24 12:38 LRN [id number]) Current Condition History of Current Condition Onset Date 05/23/23 Current Complaints Urinary incontinenace. History of Current Condition 9 month , baby (baby 5#, 1 oz.) was delivered vaginally without tearing, with epidural, 4 wks early. She is still breast feeding, but only at night. Problems of constipation during is resolved. She reports urinary leakage occasionally with sneeze ( while sitting cross legged, of if not lissy before sneezing, and jumping jacks). She is currently on control (IUD good for a few years). 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 She reports pain with intercourse, jolt sometimes with initial first few insertions. Prior Treatments and Tests PT for urinary incontinence when 27 wks . Developmental History Developmental History Pt is a traveling OT, off work until next fall. She was seen at 27 weeks for stress urinary incontinence. She had had urinary leakage for 2-3 yrs prior to and was doing kegel ex's from the [employer]. During she had stress urinary leakage and constipation. Treatment Goals Patient/Caregiver Goals - Not to leak with physical activity. - no pain with intercourse. Personal Factors Other Personal Factors That May Effect History of urinary Therapy/Recovery incontinence 1-2 yrs prior to , pain with intercourse prior to , and urinary incontinecne after 27 wks of . PT-OP-C Subjective Start: 01/31/24 13:11 Freq: Status: Active Protocol: Document 06/20/24 13:01 LRN (Rec: 06/20/24 13:50 LRN Laptop) OP-PT Subjective Patient Comments Patient Comments Started a scuba class and hurt the low back and is using Advil. LBP today is more on the R side rated 2/10. Has had weird discharge and increased urge to urinate, but had little urine each time with onset of her back pain. OP-PT Pain Assessment Pain Assessment Grid Paper Pain Assessment Grid Completed Yes Location Low back Pain Location Details Lower back, R>L, more in sacral area Intensity 3 Scale Used Numeric (0 - 10) Upper back Pain Location Details Intrascapular region. Intensity 0 Scale Used Numeric (0 - 10) PT-OP-I Pelvic Floor Start: 01/31/24 13:11 Freq: Status: Active Protocol: Document 06/20/24 13:01 LRN (Rec: 06/20/24 13:50 LRN Laptop) Pelvic Floor Assessment Urine Leakage Size Small Leakage Cause Sneeze Leaks Per Day Occasional Pelvic Clock Pelvic Clock Other PF tenderness at Pelvic Clock 3, 7, 8. PF weakness at Pelvic Clock 2, 3, 8. Prolapse Cystocele Grade 2 Perineal Descent Resting Absent Bearing Present Contraction Ability Manual Muscle Testing Anterior 3 Manual Muscle Testing Posterior 3 Muscle Endurance (Seconds) 10 Number of Quick Contractions In 10 9 Seconds Comments Pelvic Floor Comments Endurance: Held 10 secs but contraction holding strength decreased mildly at 6 secs. Quick contractions: not full relaxation. Supine (bolster for legs, Gluteal electrode to R of R Isch Tub): Resting: PF 2.8, Glut 0.1. Quick Contraction (x5): PF 13.0 (avg 4.2), Glut 1.5 (avg 0.3); Long Hold (x2 ): PF 15.3 (avg 5.1), Glut 1. 7 (avg 0.4). Sit: Resting: PF 5.5, Glut 2 .0. Quick contraction (x5): PF 16.0 (avg 6.0), Glut 35.6 ( avg 1.9). Long Hold (x2): PF 17.1 (avg 6.3), Glut 35.6 (avg 1.8). PT-OP-J Posture/Palpation/Skin Start: 01/31/24 13:11 Freq: Status: Active Protocol: Document 02/29/24 11:39 LRN (Rec: 02/29/24 12:38 LRN [id number]) Posture Evaluation Position Standing Head/C-Spine Posture Forward Head L-Spine Posture Increased Lordosis,Shifted Left Pelvis Posture Anteriorly Tilted Weight Distribution Balanced PT-OP-K Range of Motion Start: 01/31/24 13:11 Freq: Status: Active Protocol: Document 06/06/24 11:37 LRN (Rec: 06/06/24 12:34 LRN Laptop) Lumbar Spine Range of Motion Lumbar Spine Active Degrees Rotation Left 45 Rotation Right 50 Lateral Flexion Left 18 Lateral Flexion Right 20 Hip Goniometric Range of Motion Hip Right Passive Testing Position Supine Internal Rotation 30 External Rotation 90 Left Passive Testing Position Supine Internal Rotation 35 External Rotation 90 PT-OP-M Strength Start: 01/31/24 13:11 Freq: Status: Active Protocol: Document 02/29/24 11:39 LRN (Rec: 02/29/24 12:38 LRN [id number]) Trunk Strength Trunk Manual Muscle Testing Core Stabilization Loss of core stabiity with rotational stress applied Hip Strength Hip Manual Muscle Testing Right Comments Strength is 5/5. Hip extension caused LBP onset at ~L5-S1. Left External Rotation 3 Fair Comments Strength is 5/5 except as indicated above. PT-OP-Q Treatments Start: 01/31/24 13:11 Freq: Status: Active Protocol: Document 06/20/24 13:01 LRN (Rec: 06/20/24 18:34 LRN Laptop) Therapeutic Exercises Supine Exercises Long Hold PF contractions Reps/Minutes 5' Quick Contractions Reps/Minutes 6' Manual Therapy Treatment Consent Patient gave verbal consent for manual Yes treatment Neuro Re-Education Treatment Other Activities Isolated Yary trng Details Sitting: Quick & Long hold with minimization of gluteal contraction w/PF >< Reps/Duration 33' Comments Supine (bolster for legs, Gluteal: medial to R Isch Tub) : Resting: PF 2.8, Glut 0.1. Quick Contraction (x5): PF 13.0 (avg 4.2), Glut 1.5 (avg 0.3); Long Hold: PF 15.3 ( avg 5.1), Glut 1.7 (avg 0.4) Sit: Resting: PF 5.5, Glut 2 .0. Quick contraction (x5): PF 16.0 (avg 6.0), Glut 35.6 ( avg 1.9). Long Hold (x2): PF 17.1 (avg 6.3), Glut 35.6 (avg 1.8). Self-Care/Home Management Treatment Education Other Education Pt educated in use of small wand for self PF trP treatment . Activities Self-Care/Home Management Activities Issued Small wand for PF trP self treatment. PT-OP-T Assessment and Plan Start: 01/31/24 13:11 Freq: Status: Active Protocol: Document 06/20/24 13:01 LRN (Rec: 06/20/24 13:50 LRN Laptop) Physical Therapy Assessment Rehab Potential Rehabilitation Potential Good Evaluation Complexity Number of Personal Factors/Comorbidities 1-2 Number of Body Systems Impaired 4 or More Clinical Presentation at Evaluation Evolving Impairments Impairments Activity Tolerance,Pain,ROM, Soft Tissue Mobility,Strength Goals 4 Impairment Low back and upper back pain rated 3/10. Short Term Goal (STG) Pt will be educated and demonstrate knowledge of proper body mechanics for childcare and improve standing posture. 05/16/24: Educated pt in proper body mechanics for lifting and holding baby, for ADLs, and Posture & Body Mechanics. STG Duration 04/29/24 (05/16/24: MET GOAL) Air Vice Marshal Goal (LTG) Decrease upper and lower back pain to no more than 1/10 with modifications to positioning. 05/16/24: Upper and lower back pain rated 2/10. 06/20/24: LBP 3-4/10, no note of UBP. LTG Duration 08/18/24 progressing 3 Impairment Pain with intercourse Short Term Goal (STG) Reduce PF pain to no pain with intercourse. 05/09/24: No pain with intercourse. STG Duration (05/09/24: MET GOAL) Air Vice Marshal Goal (LTG) Pt will be educated and perform PF trP stretching for self care. 05/16/24: Pain resolved with intercouse 05/09/24. : Pt educated small wand for trP stretching. LTG Duration 08/18/24 progressed 06/20/24 (pt able to provide self trP rx at home) 2 Impairment Stress Urinary Incontinence ( JOHN) w/sneeze & exercise. Short Term Goal (STG) Pt is not able to perform a PF contraction in the absence of abdominal/gluteal/hip AD muscles. 03/24/24: Pt able to perform a PF contraction in absence of abdominal/gluteal assist. 04/18/24: Pt able to perform a PF contracion in absence of gluteal assist after training in sup & sit, not standing. 05/16/24: Pt able to perform a PF contraction in absence of hip AD ms. STG Duration 04/29/24 (05/16/24: MET GOAL ) Half-Way Goal (LTG) Improve PF strength to 3/5 with no urinary leakage with physical activity (not to include jumping). 05/16/24: Doing yoga and pelaton cycling and circuit training, hiking walking w/o leaking. Leaking occasionally with sneezes. 06/20/24: Urinary leakage with activity of carrying child, possibly with sneeze in sit or stand. LTG Duration 08/18/24 progressing (leaks with sneezing). 1 Impairment Lacks appropriate self care HEP Short Term Goal (STG) Pt will demonstrate knowledge of use of urge deference technique and be educated and able to demonstrate core pressure management with transfers. 03/07/24: Pt demonstrates knowledge of urge deference technique, but pt able to maintain continence without use of techniques. Initiated core pressure mgmt with transfers. 04/11/24: Educated & Issued: Handout for core pressure mgmt /Kegel with transfers. 04/18/24: Pt demonstrates knowledge of core pressure mgmt w/transfers, although pt reports not doing all the time , but trying to remember. 04/25/24: Re-issued. STG Duration 04/29/24 (04/18/24: MET GOAL) Air Vice Marshal Goal (LTG) Pt will be educated in a self care HEP of PF/ L hip (ER/ext) strengthening, and trunk AROM R rot & SB stretches. 02/29/24: (late entry) HEP: Kegels quick & long hold. 04/18/24: Instructed pt in HEP: Iliopsoas stretch in sup & 1/2 kneel. 05/09/24: (late entry) HEP: Back sink stretch, child's pose, Hip ER strengthening in sitting TB BKFO & sidelie clamshell. 06/20/24: Issued Small wand for PF trP self treatment. 05/16/24: HEP: Iliopsoas stretch in standing and supine . LTG Duration 08/18/24 progressed 06/20/24 (need hip ext strength, ? handout-trunk AROM) Assessment Summary Assessment Pt is a 28 yo female w/JOHN with occasional sneeze, ( resolved insertional dyspareunia), mild internal tenderness present at PF clock 3, 7 & 8; decr'd trunk AROM ( R rot& SB), weak L hip ER, weak/painful R hip ext and PF weakness at Pelvic Clock 2, 3, 8. The pt is progressing well with physical therapy. Today, she attends with an increase in her LBP after participating in a new activity of scuba diving lessons. The pt will benefit from continued skilled physical therapy to improve her hip and trunk mobility and strength to decrease/ eliminate her LBP and improve her PF strength to resolve her stress urinary incontinence. She did appear to have a recent episode of urgency following onset of her back pain for a short period of time that she is no longer experiencing. Physical Therapy Plan Frequency and Duration Frequency of Treatment 1x/Week Duration of treatment (weeks) 8 Plan of Care Start Date 06/20/24 Plan of Care End Date 08/18/24 Therapeutic Interventions Therapeutic Interventions Home Exercise Program,Joint Mobilizations,Manual Therapy, Neuromuscular Re-education, Self-Care/Home Management,Soft Tissue Mobilization, Therapeutic Activities, Therapeutic Exercises Modalities Biofeedback Next Visit Focus/Plan Next Note Type Treatment Note Next Visit Plan Next: Recheck again trunk R SB & rot (for need of HEP Trunk Flex, R SB & Rot stretch ), & Check if pt able to self treat PF for trP's. Aggrevator training if leakage with sneezing. Neural Re-ed trng for Kegel with sneeze/cough (practice quick Kegel w/sneeze or cough) and PF strengthening while minimizing gluteal activation in standing & supine. Ther Ex & HEP: Core/L pelvic rot strengthening and stretch/ relax R gluts (to eliminate R SIJ pain with hip ext). ?Strengthening upper back and abdominals. Monitor occasionally for improved Deep breathing & proper core pressure mgmt w/ transfers and activities. POC: Pt education, Manual therapy. Biofeedback with vaginal/gluteal sensor for PF >< awareness and strengthening , Therapeutic Exercises, Therapeutic Activities, Neuromuscular Reeducation, STM .
--- NOTE | 2024-07-11 19:25 | PT-OP ANOTE ---
Pt canceled last 2 visits due to no pre-authorization for extension of PT visit timeframe ( referral on 06/12/24) for pt to complete PT visits allowed. Pt completed 12 of 24 visits allowed.
--- NOTE | 2024-07-12 18:31 | PT-OP ANOTE ---
Per phone conversation the pt was notified of max visits of insurance coverage reached, per PT personal insurance advisor. Pt choosing to discharge from PT for financial reasons. Pt reporting her diastasis closed and tender at PF but she is using the wand to stretch the PF. Pt cautioned with starting of crossfit to breath with exercise to avoid increased core pressure with exercise. Pt will be issued Lev2 TBand for her to be picked up to replace her current TBand for her HEP. Pt to pick it up from front office. Pt agreeable to DC from PT today.
--- NOTE | 2024-07-12 18:48 | PT.OPDS ---
Current Diagnoses Low back pain, unspecified (06/20/24) Pain in thoracic spine (06/20/24) Stress incontinence (female) (male) (06/20/24) Urge incontinence (06/20/24) Unspecified dyspareunia (06/20/24) Visit Care Team Role Provider Type LUPE Mcmullen Family Provider Non-Staff Primary Care Provider Specialty: Family Practice Address: [address], [address], [place], [address] Email: Tracey Powers MD Attending Provider Physician Referring Provider Specialty: [employer] Address: [address] [place] [address], [place], [address] Email: [email or web address] Visit Number Visit Number 02/15 Discharge Summary PT-OP-B Current Condition Start: 01/31/24 13:11 Freq: Status: Active Protocol: Document 02/29/24 11:39 LRN (Rec: 02/29/24 12:38 LRN [id number]) Current Condition History of Current Condition Onset Date 05/23/23 Current Complaints Urinary incontinenace. History of Current Condition 9 month , baby (baby 5#, 1 oz.) was delivered vaginally without tearing, with epidural, 4 wks early. She is still breast feeding, but only at night. Problems of constipation during is resolved. She reports urinary leakage occasionally with sneeze ( while sitting cross legged, of if not lissy before sneezing, and jumping jacks). She is currently on control (IUD good for a few years). 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 She reports pain with intercourse, jolt sometimes with initial first few insertions. Prior Treatments and Tests PT for urinary incontinence when 27 wks . Developmental History Developmental History Pt is a traveling OT, off work until next fall. She was seen at 27 weeks for stress urinary incontinence. She had had urinary leakage for 2-3 yrs prior to and was doing kegel ex's from the [employer]. During she had stress urinary leakage and constipation. Treatment Goals Patient/Caregiver Goals - Not to leak with physical activity. - no pain with intercourse. Personal Factors Other Personal Factors That May Effect History of urinary Therapy/Recovery incontinence 1-2 yrs prior to , pain with intercourse prior to , and urinary incontinecne after 27 wks of . PT-OP-C Subjective Start: 01/31/24 13:11 Freq: Status: Active Protocol: Document 07/12/24 18:36 LRN (Rec: 07/12/24 18:48 LRN Laptop) OP-PT Subjective Patient Comments Patient Comments Per phone conversation pt requests DC from PT due to max PT limit reached and pt not able to continue due to financial reasons. Diastasis closed. PF pain but is stretching with wand. Started crossfit and is having massages. PT-OP-I Pelvic Floor Start: 01/31/24 13:11 Freq: Status: Active Protocol: Document 06/20/24 13:01 LRN (Rec: 06/20/24 13:50 LRN Laptop) Pelvic Floor Assessment Urine Leakage Size Small Leakage Cause Sneeze Leaks Per Day Occasional Pelvic Clock Pelvic Clock Other PF tenderness at Pelvic Clock 3, 7, 8. PF weakness at Pelvic Clock 2, 3, 8. Prolapse Cystocele Grade 2 Perineal Descent Resting Absent Bearing Present Contraction Ability Manual Muscle Testing Anterior 3 Manual Muscle Testing Posterior 3 Muscle Endurance (Seconds) 10 Number of Quick Contractions In 10 9 Seconds Comments Pelvic Floor Comments Endurance: Held 10 secs but contraction holding strength decreased mildly at 6 secs. Quick contractions: not full relaxation. Supine (bolster for legs, Gluteal electrode to R of R Isch Tub): Resting: PF 2.8, Glut 0.1. Quick Contraction (x5): PF 13.0 (avg 4.2), Glut 1.5 (avg 0.3); Long Hold (x2 ): PF 15.3 (avg 5.1), Glut 1. 7 (avg 0.4). Sit: Resting: PF 5.5, Glut 2 .0. Quick contraction (x5): PF 16.0 (avg 6.0), Glut 35.6 ( avg 1.9). Long Hold (x2): PF 17.1 (avg 6.3), Glut 35.6 (avg 1.8). PT-OP-J Posture/Palpation/Skin Start: 01/31/24 13:11 Freq: Status: Active Protocol: Document 02/29/24 11:39 LRN (Rec: 02/29/24 12:38 LRN [id number]) Posture Evaluation Position Standing Head/C-Spine Posture Forward Head L-Spine Posture Increased Lordosis,Shifted Left Pelvis Posture Anteriorly Tilted Weight Distribution Balanced PT-OP-K Range of Motion Start: 01/31/24 13:11 Freq: Status: Active Protocol: Document 06/06/24 11:37 LRN (Rec: 06/06/24 12:34 LRN Laptop) Lumbar Spine Range of Motion Lumbar Spine Active Degrees Rotation Left 45 Rotation Right 50 Lateral Flexion Left 18 Lateral Flexion Right 20 Hip Goniometric Range of Motion Hip Right Passive Testing Position Supine Internal Rotation 30 External Rotation 90 Left Passive Testing Position Supine Internal Rotation 35 External Rotation 90 PT-OP-M Strength Start: 01/31/24 13:11 Freq: Status: Active Protocol: Document 02/29/24 11:39 LRN (Rec: 02/29/24 12:38 LRN [id number]) Trunk Strength Trunk Manual Muscle Testing Core Stabilization Loss of core stabiity with rotational stress applied Hip Strength Hip Manual Muscle Testing Right Comments Strength is 5/5. Hip extension caused LBP onset at ~L5-S1. Left External Rotation 3 Fair Comments Strength is 5/5 except as indicated above. PT-OP-T Assessment and Plan Start: 01/31/24 13:11 Freq: Status: Active Protocol: Document 07/12/24 18:36 LRN (Rec: 07/12/24 18:48 LRN Laptop) Physical Therapy Assessment Goals 4 Impairment Low back and upper back pain rated 3/10. Short Term Goal (STG) Pt will be educated and demonstrate knowledge of proper body mechanics for childcare and improve standing posture. 05/16/24: Educated pt in proper body mechanics for lifting and holding baby, for ADLs, and Posture & Body Mechanics. STG Duration 04/29/24 (05/16/24: MET GOAL) Snf Goal (LTG) Decrease upper and lower back pain to no more than 1/10 with modifications to positioning. 05/16/24: Upper and lower back pain rated 2/10. 06/20/24: LBP 3-4/10, no note of UBP. LTG Duration 08/18/24 (07/12/24: NOT MET GOAL, pt unavailable for final assessment) 3 Impairment Pain with intercourse Short Term Goal (STG) Reduce PF pain to no pain with intercourse. 05/09/24: No pain with intercourse. STG Duration (05/09/24: MET GOAL) Rheumatology Nurse Goal (LTG) Pt will be educated and perform PF trP stretching for self care. 05/16/24: Pain resolved with intercouse 05/09/24. : Pt educated small wand for trP stretching. 07/12/24: Per phone conversation the pt reports doing PF self stretch with wand. LTG Duration 08/18/24 (07/12/24: MET GOAL) 2 Impairment Stress Urinary Incontinence ( JOHN) w/sneeze & exercise. Short Term Goal (STG) Pt is not able to perform a PF contraction in the absence of abdominal/gluteal/hip AD muscles. 03/24/24: Pt able to perform a PF contraction in absence of abdominal/gluteal assist. 04/18/24: Pt able to perform a PF contracion in absence of gluteal assist after training in sup & sit, not standing. 05/16/24: Pt able to perform a PF contraction in absence of hip AD ms. STG Duration 04/29/24 (05/16/24: MET GOAL ) Rheumatology Nurse Goal (LTG) Improve PF strength to 3/5 with no urinary leakage with physical activity (not to include jumping). 05/16/24: Doing yoga and pelaton cycling and circuit training, hiking walking w/o leaking. Leaking occasionally with sneezes. 06/20/24: Urinary leakage with activity of carrying child, possibly with sneeze in sit or stand. LTG Duration 08/18/24 (07/12/24: NOT MET GOAL, pt unavailable for final assessment) 1 Impairment Lacks appropriate self care HEP Short Term Goal (STG) Pt will demonstrate knowledge of use of urge deference technique and be educated and able to demonstrate core pressure management with transfers. 03/07/24: Pt demonstrates knowledge of urge deference technique, but pt able to maintain continence without use of techniques. Initiated core pressure mgmt with transfers. 04/11/24: Educated & Issued: Handout for core pressure mgmt /Kegel with transfers. 04/18/24: Pt demonstrates knowledge of core pressure mgmt w/transfers, although pt reports not doing all the time , but trying to remember. 04/25/24: Re-issued. STG Duration 04/29/24 (04/18/24: MET GOAL) Rheumatology Nurse Goal (LTG) Pt will be educated in a self care HEP of PF/ L hip (ER/ext) strengthening, and trunk AROM R rot & SB stretches. 02/29/24: (late entry) HEP: Kegels quick & long hold. 04/18/24: Instructed pt in HEP: Iliopsoas stretch in sup & 1/2 kneel. 05/09/24: (late entry) HEP: Back sink stretch, child's pose, Hip ER strengthening in sitting TB BKFO & sidelie clamshell. 06/20/24: Issued Small wand for PF trP self treatment. 05/16/24: HEP: Iliopsoas stretch in standing and supine . LTG Duration 08/18/24 (07/12/24: MET GOAL for current status) Assessment Summary Assessment Pt is a 28 yo female w/JOHN with occasional sneeze, ( resolved insertional dyspareunia), post . Dyspareunia has resolved, but she has PF tenderness present and is using a wand for self stretching to reduce the tenderness. At last visit she had urinary leakage with activity of carrying child, and possibly with sneezing in sit or stand. She appeared to have resolved her upper back pain, but low back pain persisted. The pt is on a self care HEP and will continue to do her exercises and is going to start a cross fit class and is receiving massage therapy. The pt could benefit from further skilled physical therapy to address her remaining conditions, but the pt is choosing to discharge from physical therapy for financial reasons. Pt is hoping to maybe in the new year seek more physical therapy if needed. Physical Therapy Plan Discharge Physical Therapy Discharge Reasons Patient Request Discharge Comments Discussed with pt her insurance limit for treatments that the patient has now met. The pt chooses to be discharged from PT due to financial reasons. Thank you for your referral.
== END 2024-07-14 09:47 | disposition home or self-care (01) ==
LOC: PHYS 13:00
PROVIDERS: Family Provider Registered Nurse; PCP Registered Nurse; Referring Provider Obstetrics & Gynecology; Visit Provider Obstetrics & Gynecology
DX: N39.41 Urge incontinence (principal); N39.3 Stress incontinence (female) (male); M54.50 Low back pain, unspecified; M54.6 Pain in thoracic spine; N94.10 Unspecified dyspareunia
CPT/HCPCS: 97110; 97112; 97140; 97162; 97530; 97535

== ENCOUNTER → 2025-02-09 17:43 | Outpatient (CLI) | payer BC, SELFPAY ==
[2025-02-09 20:12] LABS: Influenza A - CEPHEID Flu A POSITIVE (NEGATIVE); Influenza B - CEPHEID Flu B NEGATIVE (NEGATIVE)
[2025-02-09 20:21] LABS: COVID-19 CEPHEID 4-PLEX PCR Negative (Negative)
== END ==
PROVIDERS: Family Provider Registered Nurse; PCP Registered Nurse; Visit Provider Registered Nurse
DX: J02.9 Acute pharyngitis, unspecified (principal)
CPT/HCPCS: 87070; 87637